=== PATIENT | female | born 1960 | race African-American/Black ===

== ENCOUNTER 2019-07-08 17:25 | Emergency (ER) | payer OTHER ==
--- NOTE | 2019-07-08 17:29 | PDOC ---
History of Present Illness - General Chief Complaint: Pain, Acute Stated Complaint: right ankle pain Time Seen by Provider: 07/08/19 17:28 History Source: Patient Exam Limitations: No Limitations - History of Present Illness Initial Comments: 07/08/19 17:28 Brisa Langford is an otherwise healthy 58F presenting with ankle injury. 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 Denies any other injuries, LOC, head/neck trauma, prodromal WATKINS, chest pain, dizziness, vision changes. Has had pain with movement at the ankle, has taken Motrin for pain and has relieved somewhat. Able to ambulate on the ankle for a few days with a cane, but pain has increased ad presents to ED for evaluation. Works at [employer], unable to walk. Denies numbness/tingling in her leg or lower back. Past History - Past Medical History Allergies/Adverse Reactions: Allergies Allergy/AdvReac Type Severity Reaction Status Date / Time codeine [Codeine] Allergy Verified 06/06/15 10:07 erythromycin base Allergy Verified 06/06/15 10:07 [Erythromycin Base] Home Medications: Ambulatory Orders NK [No Known Home Medication] 06/06/15 Anemia: Yes Asthma: No Cancer: No Cardiac Disorders: No CVA: No COPD: No CHF: No DVT: No Dementia: No Diabetes: No Dialysis: No GI Disorders: Yes (GERD,REFLUX,REDUNDANT COLON) Disorders: No HTN: No Hypercholesterolemia: No Kidney Stones: No Liver Disease: No Psychiatric Problems: No Seizures: No Thyroid Disease: No Lung CA: No - Surgical History Abdominal Surgery: Yes (GASTRIC BYPASS) Appendectomy: No Cardiac Surgery: No Cholecystectomy: No Gastric Stapling: No GI Surgery: No Lung Surgery: No Neurologic Surgery: No Orthopedic Surgery: No - Psycho Social/Smoking Cessation Hx Smoking Status: No Smoking History: Never smoked Have you smoked in the past 12 months: No Number of Cigarettes Smoked Daily: 0 Hx Alcohol Use: No Drug/Substance Use Hx: No Substance Use Type: None Hx Substance Use Treatment: No Review of Systems - Review of Systems Able to Perform ROS?: Yes Constitutional: No: Symptoms Reported HEENTM: No: Symptoms Reported Respiratory: No: Symptoms reported Cardiac (ROS): No: Symptoms Reported ABD/GI: No: Symptoms Reported : No: Symptoms Reported Musculoskeletal: Yes: Joint Pain, Joint Swelling Integumentary: No: Symptoms Reported Neurological: No: Symptoms reported Endocrine: No: Symptoms Reported Hematologic/Lymphatic: No: Symptoms Reported All Other Systems: Reviewed and Negative *Physical Exam - Physical Exam General Appearance: Yes: Nourished, Appropriately Dressed, Obese. No: Apparent Distress HEENT: positive: EOMI, MERE, Normal ENT Inspection, Normal Voice, Symmetrical. negative: Pharynx Normal, Scleral Icterus (R), Scleral Icterus (L), Muffled/Hoarse voice, Pharyngeal Erythema, Tonsillar Exudate, Hearing Grossly Normal Neck: positive: Trachea midline, Supple. negative: Tender, Decreased range of motion, Lymphadenopathy (R), Lymphadenopathy (L), Tender lateral, Tender midline Respiratory/Chest: positive: Lungs Clear, Normal Breath Sounds. negative: Chest Tender, Respiratory Distress, Accessory Muscle Use, Crackles, Rales, Rhonchi, Stridor, Wheezing Cardiovascular: positive: Regular Rhythm, Regular Rate. negative: Murmur Gastrointestinal/Abdominal: positive: Normal Bowel Sounds, Soft, Protuberent. negative: Tender, Organomegaly, Guarding, Rebound, Hernia Musculoskeletal: positive: Normal Inspection. negative: CVA Tenderness, Decreased Range of Motion Extremity: positive: Normal Capillary Refill, Normal Range of Motion (RLE has full ROM to all joints), Tender (swelling at the ankle joint), Swelling. negative: Normal Inspection (bruising to medial malleolus), Coldness, Cyanosis, Calf Tenderness, Inflammation Integumentary: positive: Normal Color, Dry, Warm Neurologic: positive: Fully Oriented, Alert, Normal Mood/Affect, Normal Response, Motor Strength 5/5 (no weakness to flexion or extension at ankle). negative: Numbness, Sensory Deficit (same sensation to both feet/ankle/legs bilaterally) Procedures - Splinting Splint Location: Right: Ankle Pre-Proc Neuro Vasc Exam: normal Hand-Made Type: orthoglass Splint Type: Yes: Meek Alcantar Post-Proc Neuro Vasc Exam: normal, unchanged from pre-exam Terry Bandage: yes Complications: No Good repositioning: Yes Medical Decision Making - Medical Decision Making 07/08/19 19:26 Presents with mechanical fall and injured ankle with pain and swelling, tender to medial malleolus, needs X-ray to r/o fracture. Found to have medial malleolar fracture with mortise disruption and medial shift, consulted Dr. Ackerman and recommends splinting with crutches, non-weight bearing RLE, f/u in office tomorrow AM. Splinted without issue, stable for discharge home. Refusing crutches, discussed importance of non-weight bearing, agrees to follow-up in office tomorrow. Discharge - Discharge Information Problems reviewed: Yes Clinical Impression/Diagnosis: Medial malleolar fracture Qualifiers: Encounter type: initial encounter Fracture type: closed Fracture alignment: nondisplaced Laterality: right Qualified Code(s): S82.54XA - Nondisplaced fracture of medial malleolus of right tibia, initial encounter for closed fracture Condition: Stable Disposition: HOME - Admission No - Follow up/Referral Referrals: Richard Ackerman MD [Staff Physician] - Kleber Zuleta DO [Staff Physician] - - Patient Discharge Instructions Patient Printed Discharge Instructions: DI for Ankle Fracture Additional Instructions: Today you were evaluated for an twisted ankle. You have a right ankle fracture. We have splinted your leg, but this is an injury that is at high risk for causing severe arthritis if it is not fixed. Please see Dr. Ackerman tomorrow in the office for further evaluation. Keep the splint dry and so not get it wet. Use the crutches as instructed and do not put weight on your right foot or else the injury will get worse. If you experience numbness/tingling in the foot, worse pain, or have any other new or concerning symptoms, please return to the emergency room. - Post Discharge Activity Work/Back to School Note: Back to Work
[2019-07-08 17:31] VITALS: BP 131/85; PULSE 81; TEMP 98.3; BMI 40.5
--- NOTE | 2019-07-08 18:45 | PDOC ---
Attending Attestation - Resident Resident Name: Valdemar Elmore - ED Attending Attestation I have performed the following: I have examined & evaluated the patient, The case was reviewed & discussed with the resident, I agree w/resident's findings & plan, Exceptions are as noted - HPI HPI: 07/08/19 18:43 Injury to right ankle. Pain and swelling medially. Difficulty with weightbearing. No distal numbness tingling or pain in the toes or forefoot - Physicial Exam PE: 07/08/19 18:44 PE: Swelling and point tenderness over the medial malleolus. No significant deformity or instability on exam. No fifth metatarsal tenderness. Pulses full. No demonstrable sensory or motor deficits. 07/08/19 19:10 - Medical Decision Making 07/08/19 18:44 Assessment: X-ray reveals isolated fracture of the medial malleolus with minor disruption over the ankle mortise Plan: Orthopedic consultation for further management. 07/08/19 19:[address] Ackerman, orthopedist on-call. The medial malleolar fracture was discussed, along with a disruption of the ankle mortise. He recommended splinting, crutches, nonweightbearing, and follow-up in the morning at his office. These instructions were given to the patient, she seemed to understand and agree, and was discharged, pain controlled, adequately ambulatory and nonweightbearing as instructed, to follow-up tomorrow.
== END 2019-07-08 19:50 | disposition home or self-care (01) ==
LOC: SUPCPDRO 17:25 → FER 17:25
PROC: 2W3QX1Z Immobilization of Right Lower Leg using Splint (ICD-10-PCS; principal; 2019-07-08)
DX: S82.54XA Nondisplaced fracture of medial malleolus of right tibia, initial encounter for closed fracture (principal); W18.39XA Other fall on same level, initial encounter; Y93.89 Activity, other specified; Y92.89 Other specified places as the place of occurrence of the external cause; Z88.6 Allergy status to analgesic agent; Z88.8 Allergy status to other drugs, medicaments and biological substances; K21.9 Gastro-esophageal reflux disease without esophagitis; D64.9 Anemia, unspecified
CPT/HCPCS: 73610-TC-RT-FY; 73630-TC-RT-FY; 99283-25

== ENCOUNTER 2019-10-25 15:55 | Inpatient (IN) | payer OTHER ==
[2019-10-25] MEDS ORDERED: ACETAMINOPHEN 1000 MG/100 ML VIAL (NON FORMULARY) IVPB ONE ×2 (16:10→21:54)
--- NOTE | 2019-10-25 16:10 | PDOC ---
Rapid Medical Evaluation Medical Evaluation: Allergies Allergy/AdvReac Type Severity Reaction Status Date / Time codeine [Codeine] Allergy Verified 09/14/19 17:05 erythromycin base Allergy Verified 09/14/19 17:05 [Erythromycin Base] 10/25/19 16:06 Pt with PMH of PE, presents for R leg pain since . Pt is on Eliquis and states she is compliant with the medication. She notes that her leg is swollen. She initially went to urgent care, and was told to come to the ER for evaluation/US. COVID Positive in August. Denies fevers, chills, SOB Exam: Calf edema with TTP of the R calf. Orders: labs, US Pt to proceed to the ER for further evaluation Discharge Disposition - Diagnosis Leg pain, right - Referrals - Patient Instructions - Post Discharge Activity
[2019-10-25 16:15] VITALS: BMI 38.6
--- NOTE | 2019-10-25 16:50 | PDOC ---
Attending Attestation - Resident Resident Name: Nathaniel Tamez - HPI HPI: 10/25/19 18:18 Pt presents to the ED complaining of RLE swelling. History of COVID with submassive PE, treated with embolectomy. Has been taking Eliquis. Denies chest pain or shortness of breath. - Physicial Exam PE: 10/25/19 18:24 Agree with resident exam. Patient is alert and oriented and in no acute distress. RLE:+ RLE swelling and non pitting edema. + mild tenderness. - Medical Decision Making 10/25/19 18:42 Pt presents to the Ed complaining of RLE swelling. + DVT on US. Patient currently taking eliquis, which she is compliant with. Will anticoagulate with lovenox and admit for anticoagulation and monitoring. Discharge - Discharge Information Problems reviewed: Yes Clinical Impression/Diagnosis: Leg pain, right, Right leg DVT - Follow up/Referral - Patient Discharge Instructions - Post Discharge Activity
[2019-10-25] MEDS ORDERED: ENOXAPARIN NA (PORCINE) 120 MG/0.8 ML DISP.SYRIN SQ SCH ×2 (17:15→20:45)
--- NOTE | 2019-10-25 17:52 | PDOC ---
History of Present Illness - General Chief Complaint: Pain, Acute Stated Complaint: RT LEG PAIN Time Seen by Provider: 10/25/19 16:10 History Source: Patient Exam Limitations: No Limitations - History of Present Illness Initial Comments: 10/25/19 17:52 59 yo F with a hx of COVID (diagnosed in July) and PE (diagnosed with Submassive in July) presents to the emergency department with right lower leg pain and swelling. Per the patient, she states she was discharged 1 month ago for rehabilitation at her home. Since then, she had been taking eliquis 5 mg BID for 1 month without compliance issues. The patient endorses sitting around more than usual. The leg pain has been ongoing for 3 days with swelling that started occurring this morning. The pain is sharp, constant, and worsens with ambulation. She noticed leg swelling today throughout the right LE. Denies the following: fevers, chills, SOB, chest pain, nausea, vomiting, dysuria, hematuria, diarrhea, hematochezia. Allergies: codeine, erythromycin Past History - Medical History Allergies/Adverse Reactions: Allergies Allergy/AdvReac Type Severity Reaction Status Date / Time codeine [Codeine] Allergy Verified 10/25/19 16:09 erythromycin base Allergy Verified 10/25/19 16:09 [Erythromycin Base] Home Medications: Ambulatory Orders Apixaban [Eliquis] 5 mg PO BID #60 tablet 09/22/19 Anemia: Yes Asthma: No Cancer: No Cardiac Disorders: No CVA: No COPD: No CHF: No DVT: No Dementia: No Diabetes: No Dialysis: No GI Disorders: Yes (GERD,REFLUX,REDUNDANT COLON) Disorders: No HTN: No Hypercholesterolemia: No Kidney Stones: No Liver Disease: No Psychiatric Problems: No Seizures: No Thyroid Disease: No Lung CA: No Other medical history: pulmonary embolism 09/14/2019 - Surgical History Abdominal Surgery: Yes (GASTRIC BYPASS) Appendectomy: No Cardiac Surgery: No Cholecystectomy: No Gastric Stapling: No GI Surgery: No Lung Surgery: No Neurologic Surgery: No Orthopedic Surgery: No - Immunization History Immunization Up to Date: Yes - Psycho-Social/Smoking History Smoking Status: No Smoking History: Never smoked Have you smoked in the past 12 months: No Number of Cigarettes Smoked Daily: 0 - Substance Abuse Hx (Audit-C & DAST Scrn) How often the patient has a drink containing alcohol: Never Score: In Men: 4 or > Positive; In Women: 3 or > Positive: 0 Screen Result (Pos requires Nsg. Audit-10AR): Negative In the last yr the pt used illegal drug/Rx for NonMed reason: No Score: Yes response is considered Positive: 0 Screen Result (Positive result requires Nsg. DAST-10): Negative Review of Systems - Review of Systems Able to Perform ROS?: Yes Is the patient limited Ugandan proficient: No Constitutional: No: Chills, Diaphoresis, Fever, Weakness HEENTM: No: Eye Pain, Ear Pain, Nose Pain, Throat Pain Respiratory: No: Cough, Shortness of Breath Cardiac (ROS): Yes: Edema (right lower leg). No: Chest Pain, Lightheadedness, Palpitations ABD/GI: No: Constipated, Diarrhea, Nausea, Rectal Bleeding, Vomiting, Tarry Stools : No: Dysuria, Hematuria Musculoskeletal: Yes: Muscle Pain (right leg pain). No: Back Pain, Joint Pain, Neck Pain Integumentary: No: Bruising, Rash Neurological: No: Headache, Ataxia Psychiatric: No: Change in Appetite Endocrine: No: Unexplained Weight Loss Hematologic/Lymphatic: No: Anemia *Physical Exam - Vital Signs Last Vital Signs Temp Pulse Resp BP Pulse Ox 135/78 99 10/25/19 16:12 10/25/19 16:12 - Physical Exam General Appearance: Yes: Nourished, Appropriately Dressed. No: Apparent Distress, Intoxicated HEENT: positive: EOMI, MERE, Normal Voice, Symmetrical, Pharynx Normal. negative: Pale Conjunctivae, Scleral Icterus (R), Scleral Icterus (L), Muffled/Hoarse voice, Pharyngeal Erythema, Tonsillar Exudate, Tonsillar Erythema Neck: positive: Trachea midline, Supple. negative: Tender, Lymphadenopathy (R), Lymphadenopathy (L), Tender lateral, Tender midline Respiratory/Chest: positive: Lungs Clear, Normal Breath Sounds. negative: Chest Tender, Respiratory Distress, Accessory Muscle Use Cardiovascular: positive: Regular Rhythm, Regular Rate, S1, S2. negative: Systolic Murmur Gastrointestinal/Abdominal: positive: Normal Bowel Sounds, Flat, Soft. negative: Tender, Distended, Guarding, Rebound, Spleenomegaly Lymphatic: negative: Adenopathy Musculoskeletal: positive: Normal Inspection. negative: CVA Tenderness, Vertebral Tenderness Extremity: positive: Normal Capillary Refill, Normal Range of Motion, Tender (posterior calf right side), Swelling (right), Calf Tenderness (right side) Integumentary: positive: Normal Color, Dry, Warm Neurologic: positive: maid cleaning cooking II-XII NML intact, Fully Oriented, Alert, Normal Mood/Affect, Normal Response, Motor Strength 5/5. negative: EOM Palsy, Facial Droop, Numbness, Sensory Deficit, Finger to Nose ED Treatment Course - LABORATORY CBC & Chemistry Diagram: 10/26/19 07:13 10/26/19 07:13 - RADIOLOGY Radiology Studies Ordered: Category Date Time Status CHEST X-RAY PORTABLE* [RAD] Stat Radiology 10/25/19 17:01 Taken Medical Decision Making - Medical Decision Making 59 yo F with a hx of COVID (diagnosed in July) and PE (diagnosed with Submassive in July) presents to the emergency department with right lower leg pain and swelling. Initial vitals: Initial Vital Signs BP Pulse Ox 135/78 99 10/25/19 16:12 10/25/19 16:12 Work up: patient presents to the emergency department with right lower leg extremity swelling and pain. patient had duplex US done by [facility]. Shown to have a clot located in the right lower extremity. patient is currently on eliquis and compliant with her medication. She endorses having more sitting and lying down that usual over the past 1 month Will obtain labs and begin the patient on lovenox. 120 mg to be ordered. Patient was signed out to night team with pending lab work. Discharge - Discharge Information Problems reviewed: Yes Clinical Impression/Diagnosis: Leg pain, right, Right leg DVT - Follow up/Referral - Patient Discharge Instructions - Post Discharge Activity
[2019-10-25] MEDS ORDERED: ENOXAPARIN NA (PORCINE) 100 MG/1 ML DISP.SYRIN SQ ONE (17:55)
[2019-10-25] MEDS ORDERED: ENOXAPARIN NA (PORCINE) 40 MG/0.4 ML DISP.SYRIN SQ ONE (17:55)
[2019-10-25 18:44] LABS: EOS % 0.7 % (0-4.5); HEMATOCRIT 34.6 % (32.4-45.2); HEMOGLOBIN 11.2 GM/dL (10.7-15.3); MCH 29.4 pg (25.7-33.7); MCHC 32.4 g/dl (32.0-36.0); MEAN PLT VOLUME 8.9 fl (7.5-11.1); MONO % 8.8 % (3.8-10.2); NEUT % 61.5 % (42.8-82.8); PLATELET COUNT 297 K/MM3 (134-434); RBC 3.81 M/mm3 (3.60-5.2); RDW 14.8 % (11.6-15.6); WHITE BLOOD COUNT 5.2 K/mm3 (4.0-10.0)
[2019-10-25 18:51] LABS: INR 1.36 (0.83-1.09); PROTHROMBIN TIME (PATIENT) 16.1 SEC (9.7-13.0)
[2019-10-25 19:07] LABS: BILIRUBIN,TOTAL 0.5 mg/dL (0.2-1); BLOOD UREA NITROGEN 8.1 mg/dL (7-18); CREATININE 0.9 mg/dL (0.55-1.3); POTASSIUM 4.1 mmol/L (3.5-5.1); TOT PROT 7.3 g/dl (6.4-8.2)
--- NOTE | 2019-10-25 20:35 | HP ---
Admitting History and Physical - Admission Chief Complaint: Acute pain and edema of the right lower leg History of Present Illness: This 59 yr old female with PMH of pulmonary embolism, obesity, and s/p gastric bypass, anemia, GERD, admitted via ER with an acute pain and edema of the right lower leg since last . Positive for Covid in August 2019. Patient was on Eliquis 5mg po bid. Ultrasound reveals DVT in right femoral vein and right popliteal vein. History Source: Patient, Medical Record Limitations to Obtaining History: No Limitations - Past Medical History [employer]GE [employer]AT: No: Alzheimer's, CVA, Dementia, Migraine, Multiple Sclerosis, Peripheral Neuropathy, Parkinson's, Seizure, Syncope, TIA, Vertigo, Other Cardiovascular: No: AFIB, Aneurysm, Aortic Insufficiency, Aortic Stenosis, CAD, CHF, Deep Vein Thrombosis, HTN, Hyperlipdemia, SD, Mitral Insufficiency, Mitral Stenosis, Murmur, Pulmonary Hypertension, Other Pulmonary: Yes: Pulmonary Embolus Gastrointestinal: Yes: GERD Hepatobiliary: No: Cirrhosis, Cholelithiasis, Cholecystitis, Choledocholithiasis, Hepatitis A, Hepatitis B, Hepatitis C, Other Renal/: No: Renal Failure, Renal Inusuff, BPH, Cancer, Hematuria, Hemodialysis, Neurogenic Bladder, Renal Calculi, UTI, Other Reproductive: No: Ectopic , Endometriosis, Fibroids, PID, Polycystic Ovary Syndrome, Postmenopausal, Other Heme/Onc: Yes: Anemia Infectious Disease: No: AIDS, C-Diff, Herpes Zoster, HIV, MRSA, STD's, Tuberculosis, VREF, Other Psych: No: Addictions, Anxiety, Bipolar, Depression, Panic, Psychosis, Schizophrenia, Other Musculoskeletal: No: Bursitis, Chronic low back pain, Hemiparesis, Hemiplegia, Osteoarthritis, Paraplegia, Other Rheumatology: No: Fibromyalgia, Gout, Lupus, Rheumatoid Arthritis, Sarcoidosis, Vasculitis, Other ENT: No: Allergic Rhinitis, Sinusitis, Other Endocrine: No: Rose's Disease, Armour's Disease, Diabetes Insipidus, Diabetes Mellitus, Hyperparathyroidism, Hyperthyroidism, Hypothyroidism, Osteopenia, SIADH, Other Dermatology: No: Basal Cell, Cellulitis, Eczema, Melanoma, Psoriasis, Squamous Cell, Other - Past Surgical History Past Surgical History: Yes: Bariatric Surgery - Smoking History Smoking history: Never smoked Have you smoked in the past 12 months: No Aproximately how many cigarettes per day: 0 - Alcohol/Substance Use Hx Alcohol Use: No - Social History Usual Living Arrangement: Yes: With Child Home Medications - Allergies Allergies/Adverse Reactions: Allergies Allergy/AdvReac Type Severity Reaction Status Date / Time codeine [Codeine] Allergy Verified 10/25/19 16:09 erythromycin base Allergy Verified 10/25/19 16:09 [Erythromycin Base] - Home Medications Home Medications: Ambulatory Orders Apixaban [Eliquis] 5 mg PO BID #60 tablet 09/22/19 Review of Systems - Review of Systems Constitutional: reports: Other (Pain and swelling in right lower leg) Eyes: reports: No Symptoms HENT: reports: No Symptoms Neck: reports: No Symptoms Cardiovascular: reports: No Symptoms Respiratory: reports: No Symptoms Gastrointestinal: reports: Indigestion Genitourinary: reports: No Symptoms Breasts: reports: No Symptoms Reported Musculoskeletal: reports: Extremity Pain (right lower leg) Integumentary: reports: Erythema (right lower leg) Neurological: reports: No Symptoms Endocrine: reports: No Symptoms Hematology/Lymphatic: reports: No Symptoms Psychiatric: reports: No Symptoms Physical Examination Vital Signs: Vital Signs Temperature 98.2 F 10/25/19 19:24 Pulse Rate 80 10/25/19 19:24 Respiratory Rate Blood Pressure 121/76 10/25/19 19:24 O2 Sat by Pulse Oximetry (%) 100 10/25/19 19:24 Constitutional: Yes: Well Nourished, Calm, Mild Distress Eyes: Yes: Conjunctiva Clear, EOM Intact HENT: Yes: Atraumatic, Normocephalic Neck: Yes: Supple, Trachea Midline Cardiovascular: Yes: Regular Rate and Rhythm Respiratory: Yes: Regular, CTA Bilaterally Gastrointestinal: Yes: Normal Bowel Sounds, Soft, Abdomen, Obese ...Rectal Exam: Yes: Deferred Renal/: Yes: WNL Breast(s): Yes: WNL Musculoskeletal: Yes: WNL Extremities: Yes: Calf Tenderness (right) Edema: Yes Edema: RLE: 2+ Peripheral Pulses WNL: Yes Integumentary: Yes: WNL Neurological: Yes: Alert, Oriented ...Motor Strength: WNL Psychiatric: Yes: Alert, Oriented Labs: CBC, BMP 10/25/19 17:30 10/25/19 17:30 Imaging - Results Chest X-ray: Report Reviewed Ultrasound: Report Reviewed (DVT of right femoral and popliteal veins) Other: Report Reviewed (lab data reviewed) Problem List - Problems (1) Obesity Code(s): E66.9 - OBESITY, UNSPECIFIED (2) Leg pain, right Code(s): M79.604 - PAIN IN RIGHT LEG (3) COVID-19 Code(s): U07.1 - COVID POSITIVE (4) Influenza-like illness Code(s): J11.1 - FLU DUE TO UNIDENTIFIED INFLUENZA VIRUS W OTH RESP MANIFEST (5) Pulmonary embolism Code(s): I26.99 - OTHER PULMONARY EMBOLISM WITHOUT ACUTE COR PULMONALE (6) Shortness of breath Code(s): R06.02 - SHORTNESS OF BREATH (7) Deep vein thrombosis (DVT) of popliteal vein of right lower extremity Code(s): I82.431 - ACUTE EMBOLISM AND THROMBOSIS OF RIGHT POPLITEAL VEIN (8) Deep vein thrombosis (DVT) of femoral vein of right lower extremity Code(s): I82.411 - ACUTE EMBOLISM AND THROMBOSIS OF RIGHT FEMORAL VEIN (9) GERD (gastroesophageal reflux disease) Code(s): K21.9 - GASTRO-ESOPHAGEAL REFLUX DISEASE WITHOUT ESOPHAGITIS (10) H/O gastric bypass Code(s): Z98.84 - BARIATRIC SURGERY STATUS Assessment/Plan Assessment/plan: acute pain in right lower leg, acute edema of right lower leg, acute DVT of right femoral and popliteal veins, pulmonary embolism, obesity, s/p Covid 19 infection, s/p gastric bypass, GERD, anemia; a/c with Lovenox 135mg SQ bid, bed rest with bathroom privileges, cbc, cmp, inr/pt, d-dimer.
--- NOTE | 2019-10-25 20:49 | PDOC ---
*Physical Exam - Vital Signs Last Vital Signs Temp Pulse Resp BP Pulse Ox 98.2 F 80 121/76 100 10/25/19 19:24 10/25/19 19:24 10/25/19 19:24 10/25/19 19:24 ED Treatment Course - LABORATORY CBC & Chemistry Diagram: 10/25/19 17:30 10/25/19 17:30 - ADDITIONAL ORDERS Additional order review: Laboratory Results 10/25/19 10/25/19 17:30 17:30 PT with INR 16.10 H INR 1.36 H Sodium 140 Potassium 4.1 Chloride 106 Carbon Dioxide 25 Anion Gap 9 BUN 8.1 Creatinine 0.9 Est GFR (CKD-EPI)AfAm 81.11 Est GFR (CKD-EPI)NonAf 69.99 Random Glucose 125 H Calcium 9.0 Total Bilirubin 0.5 AST 35 ALT 42 Alkaline Phosphatase 119 H Total Protein 7.3 Albumin 3.0 L 10/25/19 17:30 RBC 3.81 MCV 91.0 MCHC 32.4 RDW 14.8 MPV 8.9 Neutrophils % 61.5 Lymphocytes % 28.0 D Monocytes % 8.8 Eosinophils % 0.7 Basophils % 1.0 - Medications Given in the ED: ED Medications Discontinued Medications Generic Name Dose Route Start Last Admin Trade Name Freq PRN Reason Stop Dose Admin Acetaminophen 1,000 mg 10/25/19 16:10 10/25/19 19:04 Ofirmev Injection - IVPB 10/25/19 16:11 Not Given ONCE ONE Enoxaparin Sodium 120 mg 10/25/19 17:15 10/25/19 18:16 Lovenox - SQ 120 mg ONCE ALEX Administration Medical Decision Making - Medical Decision Making 10/25/19 20:[address] Tamez 59 yo F with a hx of COVID (diagnosed in July) and PE (diagnosed with Submassive in July) presents to the emergency department with right lower leg pain and swelling. Concern for LE DVT Duplex US with right common femoral dvt; 120mg lovenox given signed out to followup labs and admit 10/25/19 20:48 labs wnl admitted to Dr Frausto, [place] Discharge - Discharge Information Problems reviewed: Yes Clinical Impression/Diagnosis: Leg pain, right, Right leg DVT Condition: Stable - Follow up/Referral Referrals: Yang Foreman [Primary Care Provider] - - Patient Discharge Instructions - Post Discharge Activity
[2019-10-25] MEDS ORDERED: ACETAMINOPHEN INJECTION 100 ML IVPB ONE (22:05)
[2019-10-25] MEDS ORDERED: ENOXAPARIN NA (PORCINE) 30 MG/0.3 ML DISP.SYRIN SQ ONE (22:21)
[2019-10-25] MEDS: ENOXAPARIN SQ SCH (22:33)
[2019-10-26] MEDS ORDERED: PT OWN MED DRAWER 7, Y5N ONE ×3 (01:04→21:16)
[2019-10-26] MEDS ORDERED: ACETAMINOPHEN 325 MG TABLET (FP) PO PRN (06:14)
[2019-10-26 08:27] LABS: BASO % 0.8 % (0-2.0); EOS % 1.3 % (0-4.5); HEMATOCRIT 32.5 % (32.4-45.2); HEMOGLOBIN 10.5 GM/dL (10.7-15.3); LYMPH % 37.6 % (8-40); MCH 29.3 pg (25.7-33.7); MCHC 32.4 g/dl (32.0-36.0); MEAN CELL VOLUME 90.6 fl (80-96); MEAN PLT VOLUME 8.6 fl (7.5-11.1); MONO % 11.2 % (3.8-10.2); NEUT % 49.1 % (42.8-82.8); PLATELET COUNT 281 K/MM3 (134-434); RBC 3.59 M/mm3 (3.60-5.2); RDW 14.5 % (11.6-15.6); WHITE BLOOD COUNT 4.3 K/mm3 (4.0-10.0)
[2019-10-26 08:35] LABS: INR 1.1 (0.83-1.09)
[2019-10-26 08:48] LABS: ALBUMIN 2.7 g/dl (3.4-5.0); BILIRUBIN,TOTAL 0.5 mg/dL (0.2-1); BLOOD UREA NITROGEN 8.1 mg/dL (7-18); CREATININE 0.7 mg/dL (0.55-1.3); POTASSIUM 4.7 mmol/L (3.5-5.1); TOT PROT 6.6 g/dl (6.4-8.2)
--- NOTE | 2019-10-26 09:04 | PN ---
Progress Note, Physician Chief Complaint: Patient seen and examined at the bedside, no acute events from last night, no labored breathing, no chest pain. History of Present Illness: This 59 yr old female with PMH of pulmonary embolism, obesity, gastric bypass, anemia, GERD admitted via ER with an acute pain and edema of right lower leg. Ultrasound revealed DVT in right femoral and popliteal veins. - Current Medication List Current Medications: Active Medications Enoxaparin Sodium 100 mg/ (Enoxaparin Sodium 35 mg) 135 mg SQ BID [facility] Last Admin: 10/25/19 22:33 Dose: 135 mg Documented by: - Objective Vital Signs: Vital Signs Temperature 99 F 10/26/19 06:39 Pulse Rate 72 10/26/19 06:39 Respiratory Rate 20 10/26/19 06:39 Blood Pressure 133/78 10/26/19 06:39 O2 Sat by Pulse Oximetry (%) 100 10/26/19 03:51 Constitutional: Yes: Well Nourished, No Distress, Calm Eyes: Yes: Conjunctiva Clear, EOM Intact HENT: Yes: Atraumatic, Normocephalic Neck: Yes: Supple, Trachea Midline Cardiovascular: Yes: Regular Rate and Rhythm Respiratory: Yes: Regular, CTA Bilaterally Gastrointestinal: Yes: Normal Bowel Sounds, Soft ...Rectal Exam: Yes: Deferred Genitourinary: Yes: WNL Breast(s): Yes: WNL Musculoskeletal: Yes: WNL Extremities: Yes: Calf Tenderness (right) Edema: Yes Edema: RLE: 2+ Peripheral Pulses WNL: Yes Integumentary: Yes: WNL Neurological: Yes: WNL ...Motor Strength: WNL Psychiatric: Yes: WNL Labs: CBC, BMP 10/26/19 07:13 10/26/19 07:13 INR, PTT INR 1.10 (0.83-1.09) H 10/26/19 07:13 - ....Imaging Other: Report Reviewed (lab data reviewed) Problem List - Problems (1) Obesity Code(s): E66.9 - OBESITY, UNSPECIFIED (2) Leg pain, right Code(s): M79.604 - PAIN IN RIGHT LEG (3) COVID-19 Code(s): U07.1 - COVID POSITIVE (4) Influenza-like illness Code(s): J11.1 - FLU DUE TO UNIDENTIFIED INFLUENZA VIRUS W OTH RESP MANIFEST (5) Pulmonary embolism Code(s): I26.99 - OTHER PULMONARY EMBOLISM WITHOUT ACUTE COR PULMONALE (6) Shortness of breath Code(s): R06.02 - SHORTNESS OF BREATH (7) Deep vein thrombosis (DVT) of popliteal vein of right lower extremity Code(s): I82.431 - ACUTE EMBOLISM AND THROMBOSIS OF RIGHT POPLITEAL VEIN (8) Deep vein thrombosis (DVT) of femoral vein of right lower extremity Code(s): I82.411 - ACUTE EMBOLISM AND THROMBOSIS OF RIGHT FEMORAL VEIN (9) GERD (gastroesophageal reflux disease) Code(s): K21.9 - GASTRO-ESOPHAGEAL REFLUX DISEASE WITHOUT ESOPHAGITIS (10) H/O gastric bypass Code(s): Z98.84 - BARIATRIC SURGERY STATUS Assessment/Plan Assessment/plan: acute pain and edema of the right lower leg, acute DVT of the right femoral and popliteal veins, obesity, anemia, s/p gastric bypass, pulmonary embolism, GERD; a/c with Lovenox 135mg SQ bid, acetaminophen prn.
[2019-10-26] MEDS: ENOXAPARIN SQ SCH ×2 (09:10→22:43)
--- NOTE | 2019-10-26 09:19 | EKG ---
Test Reason : Blood Pressure : / mmHG Vent. Rate : 087 BPM Atrial Rate : 087 BPM P-R Int : 152 ms QRS Dur : 092 ms QT Int : 372 ms P-R-T Axes : 046 -12 032 degrees QTc Int : 447 ms SINUS RHYTHM WITH PREMATURE ATRIAL COMPLEXES MINIMAL VOLTAGE CRITERIA FOR LVH, MAY BE NORMAL VARIANT BORDERLINE ECG WHEN COMPARED WITH ECG OF 14-SEP-2019 17:23, PREMATURE ATRIAL COMPLEXES ARE NOW PRESENT ST NO LONGER DEPRESSED IN LATERAL LEADS Confirmed by JOHNNA VANN MD ([id number]) on 10/26/2019 9:19:09 AM Referred By: Confirmed By:JOHNNA VANN MD
[2019-10-26] MEDS: ACETAMINOPHEN 325 MG TABLET (FP) PO PRN ×2 (16:52→22:43)
[2019-10-26] MEDS ORDERED: WARFARIN NA 5 MG TABLET PO ONE (18:00)
[2019-10-27 08:00] LABS: BASO % 0.8 % (0-2.0); EOS % 0.7 % (0-4.5); HEMATOCRIT 34.2 % (32.4-45.2); HEMOGLOBIN 11.3 GM/dL (10.7-15.3); LYMPH % 44.5 % (8-40); MCH 29.9 pg (25.7-33.7); MEAN CELL VOLUME 90.6 fl (80-96); MEAN PLT VOLUME 8.6 fl (7.5-11.1); MONO % 8.1 % (3.8-10.2); NEUT % 45.9 % (42.8-82.8); PLATELET COUNT 324 K/MM3 (134-434); RBC 3.77 M/mm3 (3.60-5.2); RDW 14.7 % (11.6-15.6); WHITE BLOOD COUNT 4.3 K/mm3 (4.0-10.0)
[2019-10-27 08:08] LABS: INR 1.03 (0.83-1.09); PROTHROMBIN TIME (PATIENT) 12.1 SEC (9.7-13.0)
--- NOTE | 2019-10-27 09:35 | PN ---
Progress Note, Physician Chief Complaint: Patient seen and examined at the bedside, no acute events from last night, c/o constipation, no chest tightness, no labored breathing. History of Present Illness: This 59 yr old female with PMH of pulmonary embolism, obesity, gastric bypass, anemia, GERD admitted via ER with an acute pain and edema of RLE. - Current Medication List Current Medications: Active Medications Acetaminophen (Tylenol -) 650 mg PO Q4H PRN PRN Reason: MODERATE PAIN Last Admin: 10/26/19 22:43 Dose: 650 mg Documented by: Enoxaparin Sodium 100 mg/ (Enoxaparin Sodium 35 mg) 135 mg SQ BID [facility] Last Admin: 10/26/19 22:43 Dose: 135 mg Documented by: - Objective Vital Signs: Vital Signs Temperature 98.7 F 10/27/19 06:42 Pulse Rate 74 10/27/19 06:42 Respiratory Rate 10/27/19 06:42 Blood Pressure 128/92 10/27/19 06:42 O2 Sat by Pulse Oximetry (%) 100 10/26/19 21:00 Constitutional: Yes: Well Nourished, No Distress, Calm Eyes: Yes: Conjunctiva Clear, EOM Intact HENT: Yes: Atraumatic, Normocephalic Neck: Yes: Supple, Trachea Midline Cardiovascular: Yes: Regular Rate and Rhythm Respiratory: Yes: Regular, CTA Bilaterally Gastrointestinal: Yes: Normal Bowel Sounds, Soft, Other (constipation) ...Rectal Exam: Yes: Deferred Genitourinary: Yes: WNL Musculoskeletal: Yes: WNL Extremities: Yes: Other (DVT of RLE) Edema: Yes Edema: RLE: 1+ Peripheral Pulses WNL: Yes Integumentary: Yes: WNL Neurological: Yes: WNL ...Motor Strength: WNL Psychiatric: Yes: WNL Labs: CBC, BMP 10/27/19 06:26 10/26/19 07:13 INR, PTT INR 1.03 (0.83-1.09) 10/27/19 06:26 - ....Imaging Other: Report Reviewed (lab data reviewed) Problem List - Problems (1) Obesity Code(s): E66.9 - OBESITY, UNSPECIFIED (2) Leg pain, right Code(s): M79.604 - PAIN IN RIGHT LEG (3) COVID-19 Code(s): U07.1 - COVID POSITIVE (4) Influenza-like illness Code(s): J11.1 - FLU DUE TO UNIDENTIFIED INFLUENZA VIRUS W OTH RESP MANIFEST (5) Pulmonary embolism Code(s): I26.99 - OTHER PULMONARY EMBOLISM WITHOUT ACUTE COR PULMONALE (6) Shortness of breath Code(s): R06.02 - SHORTNESS OF BREATH (7) Deep vein thrombosis (DVT) of popliteal vein of right lower extremity Code(s): I82.431 - ACUTE EMBOLISM AND THROMBOSIS OF RIGHT POPLITEAL VEIN (8) Deep vein thrombosis (DVT) of femoral vein of right lower extremity Code(s): I82.411 - ACUTE EMBOLISM AND THROMBOSIS OF RIGHT FEMORAL VEIN (9) GERD (gastroesophageal reflux disease) Code(s): K21.9 - GASTRO-ESOPHAGEAL REFLUX DISEASE WITHOUT ESOPHAGITIS (10) H/O gastric bypass Code(s): Z98.84 - BARIATRIC SURGERY STATUS Assessment/Plan Assessment/plan: acute pain and edema of the right lower leg, acute DVT of right femoral and popliteal veins, pulmonary embolism, obesity, s/p gastric bypass, GERD, anemia; a/c with Lovenox and Warfarin, Acetaminophen prn for pain of the right lower leg.
[2019-10-27] MEDS: ENOXAPARIN SQ SCH ×2 (09:38→22:24)
[2019-10-27] MEDS ORDERED: PT OWN MED DRAWER 7, Y5N ONE ×3 (09:47→22:24)
[2019-10-27] MEDS: ACETAMINOPHEN 325 MG TABLET (FP) PO PRN ×3 (09:51→22:20)
[2019-10-27] MEDS ORDERED: POLYETHYLENE GLYCOL 3350 119 GM BTL PO SCH (11:15)
[2019-10-27] MEDS ORDERED: WARFARIN NA 5 MG TABLET PO SCH (18:00)
[2019-10-28 08:02] LABS: INR 0.99 (0.83-1.09); PROTHROMBIN TIME (PATIENT) 11.7 SEC (9.7-13.0)
[2019-10-28 08:26] LABS: EOS % 0.6 % (0-4.5); HEMATOCRIT 33.6 % (32.4-45.2); HEMOGLOBIN 11.1 GM/dL (10.7-15.3); LYMPH % 41.6 % (8-40); MCH 29.6 pg (25.7-33.7); MCHC 33.1 g/dl (32.0-36.0); MEAN CELL VOLUME 89.3 fl (80-96); MEAN PLT VOLUME 8.9 fl (7.5-11.1); MONO % 12.4 % (3.8-10.2); NEUT % 44.4 % (42.8-82.8); PLATELET COUNT 322 K/MM3 (134-434); RBC 3.76 M/mm3 (3.60-5.2); RDW 14.5 % (11.6-15.6); WHITE BLOOD COUNT 3.9 K/mm3 (4.0-10.0)
--- NOTE | 2019-10-28 09:30 | PN ---
Progress Note, Physician Chief Complaint: Patient seen and examined at the bedside, no acute events from last night, intermittent pain in the right lower leg, no constipation. History of Present Illness: This 59 yr old female with PMH of obesity, pulmonary embolism, s/p gastric bypass, anemia, GERD admitted via ER with an acute DVT of right femoral and popliteal veins. - Current Medication List Current Medications: Active Medications Acetaminophen (Tylenol -) 650 mg PO Q4H PRN PRN Reason: MODERATE PAIN Last Admin: 10/27/19 22:20 Dose: 650 mg Documented by: Enoxaparin Sodium 100 mg/ (Enoxaparin Sodium 35 mg) 135 mg SQ BID [facility] Last Admin: 10/27/19 22:24 Dose: 135 mg Documented by: Polyethylene Glycol (Miralax (For Daily Use) -) 17 gm PO DAILY [facility] Last Admin: 10/27/19 11:35 Dose: 17 gm Documented by: Warfarin Sodium (Coumadin -) 5 mg PO DAILY@1800 [facility] Last Admin: 10/27/19 17:36 Dose: 5 mg Documented by: - Objective Vital Signs: Vital Signs Temperature 98.7 F 10/28/19 04:00 Pulse Rate 68 10/28/19 04:00 Respiratory Rate 20 10/28/19 04:00 Blood Pressure 117/55 L 10/28/19 04:00 O2 Sat by Pulse Oximetry (%) 99 10/27/19 20:30 Constitutional: Yes: Well Nourished, No Distress, Calm Eyes: Yes: Conjunctiva Clear, EOM Intact HENT: Yes: Atraumatic, Normocephalic Neck: Yes: Supple, Trachea Midline Cardiovascular: Yes: Regular Rate and Rhythm Respiratory: Yes: Regular, CTA Bilaterally Gastrointestinal: Yes: Normal Bowel Sounds, Soft ...Rectal Exam: Yes: Deferred Genitourinary: Yes: WNL Breast(s): Yes: WNL Musculoskeletal: Yes: WNL Extremities: Yes: Other (no calf tenderness of the right lower leg) Edema: Yes Edema: RLE: 1+ Peripheral Pulses WNL: Yes Integumentary: Yes: WNL Neurological: Yes: WNL ...Motor Strength: WNL Labs: CBC, BMP 10/28/19 06:35 10/26/19 07:13 INR, PTT INR 0.99 (0.83-1.09) 10/28/19 06:35 - ....Imaging Other: Report Reviewed (lab data reviewed) Problem List - Problems (1) Obesity Code(s): E66.9 - OBESITY, UNSPECIFIED (2) Leg pain, right Code(s): M79.604 - PAIN IN RIGHT LEG (3) COVID-19 Code(s): U07.1 - COVID POSITIVE (4) Influenza-like illness Code(s): J11.1 - FLU DUE TO UNIDENTIFIED INFLUENZA VIRUS W OTH RESP MANIFEST (5) Pulmonary embolism Code(s): I26.99 - OTHER PULMONARY EMBOLISM WITHOUT ACUTE COR PULMONALE (6) Shortness of breath Code(s): R06.02 - SHORTNESS OF BREATH (7) Deep vein thrombosis (DVT) of popliteal vein of right lower extremity Code(s): I82.431 - ACUTE EMBOLISM AND THROMBOSIS OF RIGHT POPLITEAL VEIN (8) Deep vein thrombosis (DVT) of femoral vein of right lower extremity Code(s): I82.411 - ACUTE EMBOLISM AND THROMBOSIS OF RIGHT FEMORAL VEIN (9) GERD (gastroesophageal reflux disease) Code(s): K21.9 - GASTRO-ESOPHAGEAL REFLUX DISEASE WITHOUT ESOPHAGITIS (10) H/O gastric bypass Code(s): Z98.84 - BARIATRIC SURGERY STATUS Assessment/Plan Assessment/plan: acute DVT of the right popliteal and femoral veins, acute pain and edema of the right lower leg, obesity, pulmonary embolism, gastric bypass, anemia, GERD; Warfarin 7.5mg po daily, monitor INR daily, adjusting dose of Warfarin, Tylenol prn for pain of the right lower leg, may ambulate outside of room.
[2019-10-28] MEDS: ENOXAPARIN SQ SCH ×2 (09:47→22:02)
[2019-10-28] MEDS: ACETAMINOPHEN 325 MG TABLET (FP) PO PRN ×3 (09:52→22:02)
[2019-10-28] MEDS ORDERED: WARFARIN NA 7.5 MG TABLET (FP) PO SCH (18:00)
[2019-10-29 07:36] LABS: INR 0.98 (0.83-1.09); PROTHROMBIN TIME (PATIENT) 11.6 SEC (9.7-13.0)
[2019-10-29 07:50] LABS: BASO % 0.8 % (0-2.0); HEMATOCRIT 33.3 % (32.4-45.2); LYMPH % 49.4 % (8-40); MCH 29.7 pg (25.7-33.7); MCHC 32.9 g/dl (32.0-36.0); MEAN CELL VOLUME 90.3 fl (80-96); MEAN PLT VOLUME 8.6 fl (7.5-11.1); MONO % 11.1 % (3.8-10.2); NEUT % 37.7 % (42.8-82.8); PLATELET COUNT 329 K/MM3 (134-434); RBC 3.69 M/mm3 (3.60-5.2); RDW 14.6 % (11.6-15.6); WHITE BLOOD COUNT 3.3 K/mm3 (4.0-10.0)
--- NOTE | 2019-10-29 09:10 | PN ---
Progress Note, Physician Chief Complaint: Patient seen and examined at the bedside, no acute events from last night, intermittent pain of the right lower leg less bothersome, oxygen saturation 99% on room air. History of Present Illness: This 59 yr old female with PMH of pulmonary embolism, obesity, gastric bypass, anemia, GERD admitted via ER with an acute pain and edema of the right lower leg, and an acute DVT of the right femoral and popliteal veins. - Current Medication List Current Medications: Active Medications Acetaminophen (Tylenol -) 650 mg PO Q4H PRN PRN Reason: MODERATE PAIN Last Admin: 10/28/19 22:02 Dose: 650 mg Documented by: Enoxaparin Sodium 100 mg/ (Enoxaparin Sodium 35 mg) 135 mg SQ BID [facility] Last Admin: 10/28/19 22:02 Dose: 135 mg Documented by: Polyethylene Glycol (Miralax (For Daily Use) -) 17 gm PO DAILY PRN PRN Reason: CONSTIPATION Warfarin Sodium (Coumadin -) 10 mg PO DAILY@1800 [facility] - Objective Vital Signs: Vital Signs Temperature 98.1 F 10/29/19 06:00 Pulse Rate 72 10/29/19 06:00 Respiratory Rate 20 10/29/19 06:00 Blood Pressure 134/79 10/29/19 06:00 O2 Sat by Pulse Oximetry (%) 99 10/28/19 21:00 Constitutional: Yes: Well Nourished, Calm, Mild Distress Eyes: Yes: Conjunctiva Clear, EOM Intact HENT: Yes: Atraumatic, Normocephalic Neck: Yes: Supple, Trachea Midline Cardiovascular: Yes: Regular Rate and Rhythm Respiratory: Yes: Regular, CTA Bilaterally Gastrointestinal: Yes: Normal Bowel Sounds, Soft ...Rectal Exam: Yes: Deferred Genitourinary: Yes: WNL Breast(s): Yes: WNL Musculoskeletal: Yes: WNL Extremities: Yes: Other (DVT of right lower leg) Edema: Yes Edema: RLE: 2+ Peripheral Pulses WNL: Yes Integumentary: Yes: WNL Neurological: Yes: WNL ...Motor Strength: WNL Psychiatric: Yes: WNL Labs: CBC, BMP 10/29/19 06:18 10/26/19 07:13 INR, PTT INR 0.98 (0.83-1.09) 07/02/20 06:18 - ....Imaging Other: Report Reviewed (lab data reviewed) Problem List - Problems (1) Obesity Code(s): E66.9 - OBESITY, UNSPECIFIED (2) Leg pain, right Code(s): M79.604 - PAIN IN RIGHT LEG (3) COVID-19 Code(s): U07.1 - COVID POSITIVE (4) Influenza-like illness Code(s): J11.1 - FLU DUE TO UNIDENTIFIED INFLUENZA VIRUS W OTH RESP MANIFEST (5) Pulmonary embolism Code(s): I26.99 - OTHER PULMONARY EMBOLISM WITHOUT ACUTE COR PULMONALE (6) Shortness of breath Code(s): R06.02 - SHORTNESS OF BREATH (7) Deep vein thrombosis (DVT) of popliteal vein of right lower extremity Code(s): I82.431 - ACUTE EMBOLISM AND THROMBOSIS OF RIGHT POPLITEAL VEIN (8) Deep vein thrombosis (DVT) of femoral vein of right lower extremity Code(s): I82.411 - ACUTE EMBOLISM AND THROMBOSIS OF RIGHT FEMORAL VEIN (9) GERD (gastroesophageal reflux disease) Code(s): K21.9 - GASTRO-ESOPHAGEAL REFLUX DISEASE WITHOUT ESOPHAGITIS (10) H/O gastric bypass Code(s): Z98.84 - BARIATRIC SURGERY STATUS Assessment/Plan Assessment/plan: acute DVT of right femoral and popliteal veins, acute pain and edema of the right lower leg, acute leukopenia, pulmonary embolism, GERD, anemia, obesity, gastric bypass; a/c with Warfarin 10mg po today, and Lovenox 135mg SQ bid, Acetaminophen prn for pain control, may ambulate outside of room, Covid negative, monitor INR daily, adjusting dose of Warfarin.
[2019-10-29] MEDS ORDERED: PT OWN MED DRAWER 7, Y5N ONE ×2 (09:56→20:53)
[2019-10-29] MEDS: ENOXAPARIN SQ SCH ×2 (09:58→21:17)
[2019-10-29] MEDS: WARFARIN NA 5 MG TABLET PO SCH (17:12)
[2019-10-30 07:49] LABS: INR 1.13 (0.83-1.09); PROTHROMBIN TIME (PATIENT) 13.3 SEC (9.7-13.0)
[2019-10-30 07:59] LABS: BASO % 0.6 % (0-2.0); EOS % 0.7 % (0-4.5); HEMATOCRIT 33.7 % (32.4-45.2); HEMOGLOBIN 10.7 GM/dL (10.7-15.3); LYMPH % 48.1 % (8-40); MCH 28.6 pg (25.7-33.7); MCHC 31.8 g/dl (32.0-36.0); MEAN CELL VOLUME 89.8 fl (80-96); MEAN PLT VOLUME 8.6 fl (7.5-11.1); MONO % 11.6 % (3.8-10.2); PLATELET COUNT 341 K/MM3 (134-434); RBC 3.75 M/mm3 (3.60-5.2); RDW 14.7 % (11.6-15.6); WHITE BLOOD COUNT 3.9 K/mm3 (4.0-10.0)
--- NOTE | 2019-10-30 09:03 | PN ---
Progress Note, Physician Chief Complaint: Patient seen and examined at the bedside, no acute events from last night, oxygen saturation 99% on room air, no pain in right lower leg. History of Present Illness: This 59 yr old female with PMH of obesity, pulmonary embolism, gastric bypass, anemia, and GERD admitted via ER with an acute DVT of the right femoral and popliteal veins. - Current Medication List Current Medications: Active Medications Acetaminophen (Tylenol -) 650 mg PO Q4H PRN PRN Reason: MODERATE PAIN Last Admin: 10/28/19 22:02 Dose: 650 mg Documented by: Enoxaparin Sodium 100 mg/ (Enoxaparin Sodium 35 mg) 135 mg SQ BID [facility] Last Admin: 10/29/19 21:17 Dose: 135 mg Documented by: Polyethylene Glycol (Miralax (For Daily Use) -) 17 gm PO DAILY PRN PRN Reason: CONSTIPATION Warfarin Sodium (Coumadin -) 10 mg PO DAILY@1800 [facility] Last Admin: 10/29/19 17:12 Dose: 10 mg Documented by: - Objective Vital Signs: Vital Signs Temperature 98.5 F 10/30/19 06:00 Pulse Rate 69 10/30/19 06:00 Respiratory Rate 20 10/30/19 06:00 Blood Pressure 136/74 10/30/19 06:00 O2 Sat by Pulse Oximetry (%) 99 10/29/19 09:00 Constitutional: Yes: Well Nourished, No Distress, Calm Eyes: Yes: Conjunctiva Clear, EOM Intact HENT: Yes: Atraumatic, Normocephalic Neck: Yes: Supple, Trachea Midline Cardiovascular: Yes: Regular Rate and Rhythm Respiratory: Yes: Regular, CTA Bilaterally Gastrointestinal: Yes: Normal Bowel Sounds, Soft ...Rectal Exam: Yes: Deferred Genitourinary: Yes: WNL Breast(s): Yes: WNL Musculoskeletal: Yes: WNL Extremities: Yes: WNL Edema: Yes Edema: RLE: 1+ Peripheral Pulses WNL: Yes Integumentary: Yes: WNL Neurological: Yes: WNL ...Motor Strength: WNL Psychiatric: Yes: WNL Labs: CBC, BMP 10/30/19 06:29 10/26/19 07:13 INR, PTT INR 1.13 (0.83-1.09) H 10/30/19 06:29 - ....Imaging Other: Report Reviewed (lab data reviewed) Problem List - Problems (1) Obesity Code(s): E66.9 - OBESITY, UNSPECIFIED (2) Leg pain, right Code(s): M79.604 - PAIN IN RIGHT LEG (3) COVID-19 Code(s): U07.1 - COVID POSITIVE (4) Influenza-like illness Code(s): J11.1 - FLU DUE TO UNIDENTIFIED INFLUENZA VIRUS W OTH RESP MANIFEST (5) Pulmonary embolism Code(s): I26.99 - OTHER PULMONARY EMBOLISM WITHOUT ACUTE COR PULMONALE (6) Shortness of breath Code(s): R06.02 - SHORTNESS OF BREATH (7) Deep vein thrombosis (DVT) of popliteal vein of right lower extremity Code(s): I82.431 - ACUTE EMBOLISM AND THROMBOSIS OF RIGHT POPLITEAL VEIN (8) Deep vein thrombosis (DVT) of femoral vein of right lower extremity Code(s): I82.411 - ACUTE EMBOLISM AND THROMBOSIS OF RIGHT FEMORAL VEIN (9) GERD (gastroesophageal reflux disease) Code(s): K21.9 - GASTRO-ESOPHAGEAL REFLUX DISEASE WITHOUT ESOPHAGITIS (10) H/O gastric bypass Code(s): Z98.84 - BARIATRIC SURGERY STATUS Assessment/Plan Assessment/plan: acute pain and edema of right lower leg, acute DVT of right femoral and popliteal veins, obesity, gastric bypass, pulmonary embolism, GERD, anemia; a/c with Warfarin and Lovenox, adjusting dose of warfarin, acetaminophen prn for pain in right lower leg, physical activity as tolerated.
[2019-10-30] MEDS ORDERED: PT OWN MED DRAWER 7, Y5N ONE ×2 (09:25→21:10)
[2019-10-30] MEDS: ENOXAPARIN SQ SCH ×2 (09:36→21:34)
[2019-10-30] MEDS: WARFARIN NA 5 MG TABLET PO SCH (17:24)
--- NOTE | 2019-10-31 08:22 | PN ---
Progress Note, Physician Chief Complaint: Patient seen and examined at the bedside, no acute events from last night, no signs of bleeding. History of Present Illness: This 59 yr old female with PMH of pulmonary embolism, obesity, gastric bypass, GERD admitted via ER with an acute pain and edema of the right lower leg, and acute DVT of right femoral and popliteal veins. - Current Medication List Current Medications: Active Medications Acetaminophen (Tylenol -) 650 mg PO Q4H PRN PRN Reason: MODERATE PAIN Last Admin: 10/28/19 22:02 Dose: 650 mg Documented by: Enoxaparin Sodium 100 mg/ (Enoxaparin Sodium 35 mg) 135 mg SQ BID [facility] Last Admin: 10/30/19 21:34 Dose: 135 mg Documented by: Polyethylene Glycol (Miralax (For Daily Use) -) 17 gm PO DAILY PRN PRN Reason: CONSTIPATION Warfarin Sodium (Coumadin -) 10 mg PO DAILY@1800 [facility] Last Admin: 10/30/19 17:24 Dose: 10 mg Documented by: - Objective Vital Signs: Vital Signs Temperature 98.5 F 10/31/19 07:43 Pulse Rate 66 10/31/19 07:43 Respiratory Rate 20 10/31/19 07:43 Blood Pressure 117/78 10/31/19 07:43 O2 Sat by Pulse Oximetry (%) 99 10/30/19 20:05 Constitutional: Yes: Well Nourished, No Distress, Calm Eyes: Yes: Conjunctiva Clear, EOM Intact HENT: Yes: Atraumatic, Normocephalic Neck: Yes: Supple, Trachea Midline Cardiovascular: Yes: Regular Rate and Rhythm Respiratory: Yes: Regular, CTA Bilaterally Gastrointestinal: Yes: Normal Bowel Sounds, Soft ...Rectal Exam: Yes: Deferred Genitourinary: Yes: WNL Breast(s): Yes: WNL Musculoskeletal: Yes: WNL Extremities: Yes: WNL Edema: Yes Edema: RLE: 1+ Peripheral Pulses WNL: Yes Integumentary: Yes: WNL Neurological: Yes: WNL ...Motor Strength: WNL Psychiatric: Yes: WNL Labs: CBC, BMP 10/30/19 06:29 10/26/19 07:13 INR, PTT INR 1.13 (0.83-1.09) H 10/30/19 06:29 - ....Imaging Other: Report Reviewed (lab data reviewed) Problem List - Problems (1) Obesity Code(s): E66.9 - OBESITY, UNSPECIFIED (2) Leg pain, right Code(s): M79.604 - PAIN IN RIGHT LEG (3) COVID-19 Code(s): U07.1 - COVID POSITIVE (4) Influenza-like illness Code(s): J11.1 - FLU DUE TO UNIDENTIFIED INFLUENZA VIRUS W OTH RESP MANIFEST (5) Pulmonary embolism Code(s): I26.99 - OTHER PULMONARY EMBOLISM WITHOUT ACUTE COR PULMONALE (6) Shortness of breath Code(s): R06.02 - SHORTNESS OF BREATH (7) Deep vein thrombosis (DVT) of popliteal vein of right lower extremity Code(s): I82.431 - ACUTE EMBOLISM AND THROMBOSIS OF RIGHT POPLITEAL VEIN (8) Deep vein thrombosis (DVT) of femoral vein of right lower extremity Code(s): I82.411 - ACUTE EMBOLISM AND THROMBOSIS OF RIGHT FEMORAL VEIN (9) GERD (gastroesophageal reflux disease) Code(s): K21.9 - GASTRO-ESOPHAGEAL REFLUX DISEASE WITHOUT ESOPHAGITIS (10) H/O gastric bypass Code(s): Z98.84 - BARIATRIC SURGERY STATUS Assessment/Plan Assessment/plan: acute DVT of right femoral and popliteal veins, acute pain and edema of the right lower leg, gastric bypass, GERD, obesity, anemia, pulmonary embolism; Lovenox and warfarin, adjusting warfarin dosage.
[2019-10-31 08:33] LABS: BASO % 1.5 % (0-2.0); EOS % 0.6 % (0-4.5); HEMATOCRIT 34.5 % (32.4-45.2); HEMOGLOBIN 11.2 GM/dL (10.7-15.3); LYMPH % 43.9 % (8-40); MCHC 32.6 g/dl (32.0-36.0); MEAN PLT VOLUME 8.4 fl (7.5-11.1); PLATELET COUNT 348 K/MM3 (134-434); RBC 3.87 M/mm3 (3.60-5.2); RDW 14.5 % (11.6-15.6); WHITE BLOOD COUNT 4.3 K/mm3 (4.0-10.0)
[2019-10-31 08:44] LABS: INR 1.19 (0.83-1.09); PROTHROMBIN TIME (PATIENT) 14.1 SEC (9.7-13.0)
[2019-10-31] MEDS ORDERED: PT OWN MED DRAWER 7, Y5N ONE ×2 (09:22→10:16)
[2019-10-31] MEDS: ENOXAPARIN SQ SCH ×3 (09:25→23:44)
[2019-10-31] MEDS: ACETAMINOPHEN 325 MG TABLET (FP) PO PRN (16:35)
[2019-10-31] MEDS: WARFARIN NA 5 MG TABLET PO SCH (17:23)
--- NOTE | 2019-11-01 08:08 | PN ---
Progress Note, Physician Chief Complaint: Patient seen and examined at the bedside, no acute events from last night, one bout of headache yesterday which subsided with Tylenol. History of Present Illness: This 59 yr old female with PMH of pulmonary embolism, obesity, gastric bypass, and GERD admitted via ER with an acute pain and edema of the right lower leg, and acute DVT of right popliteal and femoral veins. - Current Medication List Current Medications: Active Medications Acetaminophen (Tylenol -) 650 mg PO Q4H PRN PRN Reason: MODERATE PAIN Last Admin: 10/31/19 16:35 Dose: 650 mg Documented by: Enoxaparin Sodium 100 mg/ (Enoxaparin Sodium 35 mg) 135 mg SQ BID [facility] Last Admin: 10/31/19 23:44 Dose: 135 mg Documented by: Polyethylene Glycol (Miralax (For Daily Use) -) 17 gm PO DAILY PRN PRN Reason: CONSTIPATION Warfarin Sodium (Coumadin -) 15 mg PO DAILY@1800 [facility] Last Admin: 10/31/19 17:23 Dose: 15 mg Documented by: - Objective Vital Signs: Vital Signs Temperature 98.8 F 11/01/19 07:02 Pulse Rate 69 11/01/19 07:02 Respiratory Rate 11/01/19 07:02 Blood Pressure 143/82 11/01/19 07:02 O2 Sat by Pulse Oximetry (%) 100 10/31/19 21:00 Constitutional: Yes: Well Nourished, No Distress, Calm Eyes: Yes: Conjunctiva Clear, EOM Intact HENT: Yes: Atraumatic, Normocephalic Neck: Yes: Supple, Trachea Midline Cardiovascular: Yes: Regular Rate and Rhythm Respiratory: Yes: Regular, CTA Bilaterally Gastrointestinal: Yes: Normal Bowel Sounds, Soft ...Rectal Exam: Yes: Deferred Breast(s): Yes: WNL Musculoskeletal: Yes: WNL Extremities: Yes: WNL Edema: Yes Edema: RLE: 1+ Peripheral Pulses WNL: Yes Integumentary: Yes: WNL Neurological: Yes: WNL ...Motor Strength: WNL Psychiatric: Yes: WNL Labs: CBC, BMP 10/31/19 07:24 10/26/19 07:13 INR, PTT INR 1.19 (0.83-1.09) H 10/31/19 07:24 - ....Imaging Other: Report Reviewed (lab data reviewed) Problem List - Problems (1) Obesity Code(s): E66.9 - OBESITY, UNSPECIFIED (2) Leg pain, right Code(s): M79.604 - PAIN IN RIGHT LEG (3) COVID-19 Code(s): U07.1 - COVID POSITIVE (4) Influenza-like illness Code(s): J11.1 - FLU DUE TO UNIDENTIFIED INFLUENZA VIRUS W OTH RESP MANIFEST (5) Pulmonary embolism Code(s): I26.99 - OTHER PULMONARY EMBOLISM WITHOUT ACUTE COR PULMONALE (6) Shortness of breath Code(s): R06.02 - SHORTNESS OF BREATH (7) Deep vein thrombosis (DVT) of popliteal vein of right lower extremity Code(s): I82.431 - ACUTE EMBOLISM AND THROMBOSIS OF RIGHT POPLITEAL VEIN (8) Deep vein thrombosis (DVT) of femoral vein of right lower extremity Code(s): I82.411 - ACUTE EMBOLISM AND THROMBOSIS OF RIGHT FEMORAL VEIN (9) GERD (gastroesophageal reflux disease) Code(s): K21.9 - GASTRO-ESOPHAGEAL REFLUX DISEASE WITHOUT ESOPHAGITIS (10) H/O gastric bypass Code(s): Z98.84 - BARIATRIC SURGERY STATUS Assessment/Plan Assessment/plan: acute DVT of the right popliteal and femoral veins, acute pain and edema of the right lower leg, obesity, s/p gastric bypass, pulmonary embolism, anemia, GERD; daily inr, a/c with warfarin and lovenox, adjusting dose of warfarin, activity as tolerated.
[2019-11-01 08:53] LABS: BASO % 1.4 % (0-2.0); EOS % 0.5 % (0-4.5); HEMATOCRIT 36.4 % (32.4-45.2); HEMOGLOBIN 11.9 GM/dL (10.7-15.3); LYMPH % 43.2 % (8-40); MCH 29.7 pg (25.7-33.7); MCHC 32.6 g/dl (32.0-36.0); MEAN CELL VOLUME 91.1 fl (80-96); MEAN PLT VOLUME 8.1 fl (7.5-11.1); MONO % 5.7 % (3.8-10.2); NEUT % 49.2 % (42.8-82.8); PLATELET COUNT 404 K/MM3 (134-434); RDW 14.7 % (11.6-15.6); WHITE BLOOD COUNT 4.1 K/mm3 (4.0-10.0)
[2019-11-01 08:59] LABS: INR 1.36 (0.83-1.09); PROTHROMBIN TIME (PATIENT) 16.1 SEC (9.7-13.0)
[2019-11-01] MEDS: ENOXAPARIN SQ SCH ×2 (09:15→21:44)
[2019-11-01] MEDS: WARFARIN NA 5 MG TABLET PO SCH (17:49)
[2019-11-01] MEDS ORDERED: PT OWN MED DRAWER 7, Y5N ONE (21:30)
[2019-11-01] MEDS: ACETAMINOPHEN 325 MG TABLET (FP) PO PRN (21:44)
--- NOTE | 2019-11-02 08:27 | PN ---
Progress Note, Physician Chief Complaint: Patient seen and examined at the bedside, no acute events from last night, no signs of bleeding, no labored breathing or chest pain. History of Present Illness: This 59 yr old female with PMH of pulmonary embolism gastric bypass, GERD, and obesity admitted via ER with an acute pain and edema of the right lower leg, and an acute DVT of the right femoral and popliteal veins. - Current Medication List Current Medications: Active Medications Acetaminophen (Tylenol -) 650 mg PO Q4H PRN PRN Reason: MODERATE PAIN Last Admin: 11/01/19 21:44 Dose: 650 mg Documented by: Enoxaparin Sodium 100 mg/ (Enoxaparin Sodium 35 mg) 135 mg SQ BID ALEX Last Admin: 11/01/19 21:44 Dose: 135 mg Documented by: Polyethylene Glycol (Miralax (For Daily Use) -) 17 gm PO DAILY PRN PRN Reason: CONSTIPATION Warfarin Sodium (Coumadin -) 15 mg PO DAILY@1800 [facility] Last Admin: 11/01/19 17:49 Dose: 15 mg Documented by: - Objective Vital Signs: Vital Signs Temperature 98.4 F 11/02/19 07:30 Pulse Rate 67 11/02/19 07:30 Respiratory Rate 20 11/02/19 07:30 Blood Pressure 135/73 11/02/19 07:30 O2 Sat by Pulse Oximetry (%) 100 11/01/19 09:00 Constitutional: Yes: Well Nourished, No Distress, Calm Eyes: Yes: Conjunctiva Clear, EOM Intact HENT: Yes: Atraumatic, Normocephalic Neck: Yes: Supple, Trachea Midline Cardiovascular: Yes: Regular Rate and Rhythm Respiratory: Yes: Regular, CTA Bilaterally Gastrointestinal: Yes: Normal Bowel Sounds, Soft, Abdomen, Obese ...Rectal Exam: Yes: Deferred Genitourinary: Yes: WNL Breast(s): Yes: WNL Musculoskeletal: Yes: WNL Extremities: Yes: WNL Edema: Yes Edema: RLE: 1+ Peripheral Pulses WNL: Yes Integumentary: Yes: WNL Neurological: Yes: WNL ...Motor Strength: WNL Psychiatric: Yes: WNL Labs: CBC, BMP 11/01/19 07:58 10/26/19 07:13 INR, PTT INR 1.36 (0.83-1.09) H 11/01/19 07:58 - ....Imaging Other: Report Reviewed (lab data reviewed) Problem List - Problems (1) Obesity Code(s): E66.9 - OBESITY, UNSPECIFIED (2) Leg pain, right Code(s): M79.604 - PAIN IN RIGHT LEG (3) COVID-19 Code(s): U07.1 - COVID POSITIVE (4) Influenza-like illness Code(s): J11.1 - FLU DUE TO UNIDENTIFIED INFLUENZA VIRUS W OTH RESP MANIFEST (5) Pulmonary embolism Code(s): I26.99 - OTHER PULMONARY EMBOLISM WITHOUT ACUTE COR PULMONALE (6) Shortness of breath Code(s): R06.02 - SHORTNESS OF BREATH (7) Deep vein thrombosis (DVT) of popliteal vein of right lower extremity Code(s): I82.431 - ACUTE EMBOLISM AND THROMBOSIS OF RIGHT POPLITEAL VEIN (8) Deep vein thrombosis (DVT) of femoral vein of right lower extremity Code(s): I82.411 - ACUTE EMBOLISM AND THROMBOSIS OF RIGHT FEMORAL VEIN (9) GERD (gastroesophageal reflux disease) Code(s): K21.9 - GASTRO-ESOPHAGEAL REFLUX DISEASE WITHOUT ESOPHAGITIS (10) H/O gastric bypass Code(s): Z98.84 - BARIATRIC SURGERY STATUS Assessment/Plan Assessment/plan: acute pain and edema of the right lower leg, acute DVT of the right femoral and popliteal veins, pulmonary embolism, gastric bypass, GERD, anemia, obesity, Covid positive in August; a/c with Lovenox and warfarin, adjusting warfarin dosage, may ambulate as tolerated.
[2019-11-02 09:20] LABS: BASO % 0.9 % (0-2.0); EOS % 0.7 % (0-4.5); HEMATOCRIT 35.7 % (32.4-45.2); HEMOGLOBIN 11.5 GM/dL (10.7-15.3); LYMPH % 45.7 % (8-40); MCH 28.7 pg (25.7-33.7); MCHC 32.2 g/dl (32.0-36.0); MEAN CELL VOLUME 89.3 fl (80-96); MEAN PLT VOLUME 8.5 fl (7.5-11.1); MONO % 11.4 % (3.8-10.2); NEUT % 41.3 % (42.8-82.8); PLATELET COUNT 375 K/MM3 (134-434); RDW 14.5 % (11.6-15.6); WHITE BLOOD COUNT 3.7 K/mm3 (4.0-10.0)
[2019-11-02 09:54] LABS: INR 1.6 (0.83-1.09)
[2019-11-02] MEDS: ENOXAPARIN SQ SCH ×2 (10:12→21:16)
[2019-11-02] MEDS: WARFARIN NA 5 MG TABLET PO SCH (17:59)
[2019-11-02] MEDS ORDERED: PT OWN MED DRAWER 7, Y5N ONE (20:47)
[2019-11-03 07:44] LABS: INR 2.13 (0.83-1.09); PROTHROMBIN TIME (PATIENT) 25.3 SEC (9.7-13.0)
[2019-11-03] MEDS ORDERED: PT OWN MED DRAWER 7, Y5N ONE ×3 (08:28→09:45)
--- NOTE | 2019-11-03 09:08 | PN ---
Progress Note, Physician Chief Complaint: Patient seen and examined at the bedside, no acute events from last night, no signs of bleeding. History of Present Illness: This 59 yr old female with PMH of pulmonary embolism, obesity, GERD, and anemia admitted via ER with an acute pain and edema of the right lower leg and an acute DVT of the right femoral and popliteal veins. - Current Medication List Current Medications: Active Medications Acetaminophen (Tylenol -) 650 mg PO Q4H PRN PRN Reason: MODERATE PAIN Last Admin: 11/01/19 21:44 Dose: 650 mg Documented by: Enoxaparin Sodium 100 mg/ (Enoxaparin Sodium 35 mg) 135 mg SQ BID ALEX Last Admin: 11/02/19 21:16 Dose: 135 mg Documented by: Polyethylene Glycol (Miralax (For Daily Use) -) 17 gm PO DAILY PRN PRN Reason: CONSTIPATION Warfarin Sodium (Coumadin -) 15 mg PO DAILY@1800 [facility] Last Admin: 11/02/19 17:59 Dose: 15 mg Documented by: - Objective Vital Signs: Vital Signs Temperature 98.5 F 11/03/19 06:00 Pulse Rate 70 11/03/19 06:00 Respiratory Rate 18 11/03/19 07:40 Blood Pressure 148/88 11/03/19 06:00 O2 Sat by Pulse Oximetry (%) 99 11/03/19 07:40 Constitutional: Yes: Well Nourished, No Distress, Calm Eyes: Yes: Conjunctiva Clear, EOM Intact HENT: Yes: Atraumatic, Normocephalic Neck: Yes: Supple, Trachea Midline Cardiovascular: Yes: Regular Rate and Rhythm Respiratory: Yes: Regular, CTA Bilaterally Gastrointestinal: Yes: Normal Bowel Sounds, Soft ...Rectal Exam: Yes: Deferred Genitourinary: Yes: WNL Breast(s): Yes: WNL Musculoskeletal: Yes: WNL Extremities: Yes: WNL Edema: Yes Edema: RLE: 1+ Peripheral Pulses WNL: Yes Integumentary: Yes: WNL Neurological: Yes: WNL ...Motor Strength: WNL Psychiatric: Yes: WNL Labs: CBC, BMP 11/02/19 08:00 10/26/19 07:13 INR, PTT INR 2.13 (0.83-1.09) H 11/03/19 07:07 - ....Imaging Other: Report Reviewed (lab data reviewed) Problem List - Problems (1) Obesity Code(s): E66.9 - OBESITY, UNSPECIFIED (2) Leg pain, right Code(s): M79.604 - PAIN IN RIGHT LEG (3) COVID-19 Code(s): U07.1 - COVID POSITIVE (4) Influenza-like illness Code(s): J11.1 - FLU DUE TO UNIDENTIFIED INFLUENZA VIRUS W OTH RESP MANIFEST (5) Pulmonary embolism Code(s): I26.99 - OTHER PULMONARY EMBOLISM WITHOUT ACUTE COR PULMONALE (6) Shortness of breath Code(s): R06.02 - SHORTNESS OF BREATH (7) Deep vein thrombosis (DVT) of popliteal vein of right lower extremity Code(s): I82.431 - ACUTE EMBOLISM AND THROMBOSIS OF RIGHT POPLITEAL VEIN (8) Deep vein thrombosis (DVT) of femoral vein of right lower extremity Code(s): I82.411 - ACUTE EMBOLISM AND THROMBOSIS OF RIGHT FEMORAL VEIN (9) GERD (gastroesophageal reflux disease) Code(s): K21.9 - GASTRO-ESOPHAGEAL REFLUX DISEASE WITHOUT ESOPHAGITIS (10) H/O gastric bypass Code(s): Z98.84 - BARIATRIC SURGERY STATUS Assessment/Plan Assessment/plan: acute pain and edema of the right lower leg, acute DVT of the right femoral and popliteal veins, pulmonary embolism, obesity, GERD, anemia, s/p gastric bypass; a/c with Lovenox and Warfarin, adjusting dosage of Warfarin 12mg po daily, decrease Lovenox to 135mg SQ daily.
[2019-11-03] MEDS: ENOXAPARIN SQ SCH (09:51)
[2019-11-03] MEDS ORDERED: WARFARIN NA 5 MG TABLET PO SCH (11:00)
[2019-11-03] MEDS ORDERED: WARFARIN NA 10 MG, WARFARIN NA 2 MG PO SCH (18:00)
[2019-11-04 07:54] LABS: INR 1.98 (0.83-1.09); PROTHROMBIN TIME (PATIENT) 23.5 SEC (9.7-13.0)
[2019-11-04] MEDS ORDERED: PT OWN MED DRAWER 7, Y5N ONE (08:00)
--- NOTE | 2019-11-04 09:07 | PN ---
Progress Note, Physician Chief Complaint: Patient seen and examined at the bedside, no acute events from last night, no signs of bleeding or pain in the right leg. History of Present Illness: This 59 yr old female with PMH of pulmonary embolism, gastric bypass, obesity, GERD, and anemia admitted via ER with an acute pain and edema of the right lower leg, and an acute DVT of the right popliteal and femoral veins. - Current Medication List Current Medications: Active Medications Acetaminophen (Tylenol -) 650 mg PO Q4H PRN PRN Reason: MODERATE PAIN Last Admin: 11/01/19 21:44 Dose: 650 mg Documented by: Enoxaparin Sodium 100 mg/ (Enoxaparin Sodium 35 mg) 135 mg SQ DAILY ALEX Polyethylene Glycol (Miralax (For Daily Use) -) 17 gm PO DAILY PRN PRN Reason: CONSTIPATION Warfarin Sodium 10 mg/ (Warfarin Sodium 2 mg) 12 mg PO DAILY@1800 [facility] Last Admin: 11/03/19 17:02 Dose: 12 mg Documented by: - Objective Vital Signs: Vital Signs Temperature 98.0 F 11/04/19 06:00 Pulse Rate 78 11/04/19 06:00 Respiratory Rate 18 11/04/19 06:00 Blood Pressure 120/72 11/04/19 06:00 O2 Sat by Pulse Oximetry (%) 100 11/03/19 21:00 Constitutional: Yes: Well Nourished, No Distress, Calm Eyes: Yes: Conjunctiva Clear, EOM Intact HENT: Yes: Atraumatic, Normocephalic Neck: Yes: Supple, Trachea Midline Cardiovascular: Yes: Regular Rate and Rhythm Respiratory: Yes: Regular, CTA Bilaterally Gastrointestinal: Yes: Normal Bowel Sounds, Soft, Abdomen, Obese ...Rectal Exam: Yes: Deferred Genitourinary: Yes: WNL Breast(s): Yes: WNL Musculoskeletal: Yes: WNL Extremities: Yes: WNL Edema: Yes Edema: RLE: 1+ Peripheral Pulses WNL: Yes Integumentary: Yes: WNL Neurological: Yes: WNL ...Motor Strength: WNL Psychiatric: Yes: WNL Labs: CBC, BMP 11/02/19 08:00 10/26/19 07:13 INR, PTT INR 1.98 (0.83-1.09) H 11/04/19 06:45 - ....Imaging Other: Report Reviewed (lab data reviewed) Problem List - Problems (1) Obesity Code(s): E66.9 - OBESITY, UNSPECIFIED (2) Leg pain, right Code(s): M79.604 - PAIN IN RIGHT LEG (3) COVID-19 Code(s): U07.1 - COVID POSITIVE (4) Influenza-like illness Code(s): J11.1 - FLU DUE TO UNIDENTIFIED INFLUENZA VIRUS W OTH RESP MANIFEST (5) Pulmonary embolism Code(s): I26.99 - OTHER PULMONARY EMBOLISM WITHOUT ACUTE COR PULMONALE (6) Shortness of breath Code(s): R06.02 - SHORTNESS OF BREATH (7) Deep vein thrombosis (DVT) of popliteal vein of right lower extremity Code(s): I82.431 - ACUTE EMBOLISM AND THROMBOSIS OF RIGHT POPLITEAL VEIN (8) Deep vein thrombosis (DVT) of femoral vein of right lower extremity Code(s): I82.411 - ACUTE EMBOLISM AND THROMBOSIS OF RIGHT FEMORAL VEIN (9) GERD (gastroesophageal reflux disease) Code(s): K21.9 - GASTRO-ESOPHAGEAL REFLUX DISEASE WITHOUT ESOPHAGITIS (10) H/O gastric bypass Code(s): Z98.84 - BARIATRIC SURGERY STATUS Assessment/Plan Assessment/plan: acute pain and edema of the right lower leg, acute DVT of the right femoral and popliteal venis, gastric bypass, GERD, pulmonary embolism, personal hx of Covid 19 infection in August, obesity, anemia; d/c Lovenox, adjusting dosage of warfarin, may ambulate outside of room as tolerated.
[2019-11-04] MEDS ORDERED: ENOXAPARIN SQ SCH (10:00)
[2019-11-04] MEDS ORDERED: WARFARIN NA 7.5 MG TABLET (FP) PO SCH (18:00)
[2019-11-05 08:19] LABS: INR 1.89 (0.83-1.09); PROTHROMBIN TIME (PATIENT) 22.5 SEC (9.7-13.0)
[2019-11-05] MEDS ORDERED: WARFARIN NA 7.5 MG TABLET (FP) PO SCH (08:45)
--- NOTE | 2019-11-05 08:48 | PN ---
Progress Note, Physician Chief Complaint: Patient seen and examined at the bedside, no acute events from last night, no signs of bleeding or pain in the right lower leg. History of Present Illness: This 59 yr old female with PMH of pulmonary embolism, covid 19 infection in August, obesity, GERD, anemia, s/p gastric bypass admitted via ER with an acute pain and edema of the right lower leg, and an acute DVT of the right femoral and popliteal veins. - Current Medication List Current Medications: Active Medications Acetaminophen (Tylenol -) 650 mg PO Q4H PRN PRN Reason: MODERATE PAIN Last Admin: 11/01/19 21:44 Dose: 650 mg Documented by: Polyethylene Glycol (Miralax (For Daily Use) -) 17 gm PO DAILY PRN PRN Reason: CONSTIPATION Warfarin Sodium (Coumadin -) 17 mg PO DAILY@1800 [facility] - Objective Vital Signs: Vital Signs Temperature 98.4 F 11/05/19 06:00 Pulse Rate 78 11/05/19 06:00 Respiratory Rate 20 11/05/19 06:00 Blood Pressure 131/48 L 11/05/19 06:00 O2 Sat by Pulse Oximetry (%) 98 11/04/19 20:02 Constitutional: Yes: Well Nourished, No Distress, Calm Eyes: Yes: Conjunctiva Clear, EOM Intact HENT: Yes: Atraumatic, Normocephalic Neck: Yes: Supple, Trachea Midline Cardiovascular: Yes: Regular Rate and Rhythm Respiratory: Yes: Regular, CTA Bilaterally Gastrointestinal: Yes: Normal Bowel Sounds, Soft ...Rectal Exam: Yes: Deferred Genitourinary: Yes: WNL Breast(s): Yes: WNL Musculoskeletal: Yes: WNL Extremities: Yes: WNL Edema: Yes Edema: RLE: 1+ Peripheral Pulses WNL: Yes Integumentary: Yes: WNL Neurological: Yes: WNL ...Motor Strength: WNL Psychiatric: Yes: WNL Labs: CBC, BMP 11/02/19 08:00 10/26/19 07:13 INR, PTT INR 1.89 (0.83-1.09) H 11/05/19 06:35 - ....Imaging Other: Report Reviewed (lab data reviewed) Problem List - Problems (1) Obesity Code(s): E66.9 - OBESITY, UNSPECIFIED (2) Leg pain, right Code(s): M79.604 - PAIN IN RIGHT LEG (3) COVID-19 Code(s): U07.1 - COVID POSITIVE (4) Influenza-like illness Code(s): J11.1 - FLU DUE TO UNIDENTIFIED INFLUENZA VIRUS W OTH RESP MANIFEST (5) Pulmonary embolism Code(s): I26.99 - OTHER PULMONARY EMBOLISM WITHOUT ACUTE COR PULMONALE (6) Shortness of breath Code(s): R06.02 - SHORTNESS OF BREATH (7) Deep vein thrombosis (DVT) of popliteal vein of right lower extremity Code(s): I82.431 - ACUTE EMBOLISM AND THROMBOSIS OF RIGHT POPLITEAL VEIN (8) Deep vein thrombosis (DVT) of femoral vein of right lower extremity Code(s): I82.411 - ACUTE EMBOLISM AND THROMBOSIS OF RIGHT FEMORAL VEIN (9) GERD (gastroesophageal reflux disease) Code(s): K21.9 - GASTRO-ESOPHAGEAL REFLUX DISEASE WITHOUT ESOPHAGITIS (10) H/O gastric bypass Code(s): Z98.84 - BARIATRIC SURGERY STATUS Assessment/Plan Assessment/plan: acute pain and edema of the right lower leg, acute DVT of the right femoral and popliteal veins, pulmonary embolism, GERD, anemia, s/p gastric bypass; Warfarin 17mg po daily, adjusting warfarin dosage, today's INR 1.89.
[2019-11-05] MEDS ORDERED: WARFARIN NA 5 MG TABLET ONE (18:04)
[2019-11-05] MEDS ORDERED: WARFARIN NA 10 MG TABLET ONE (18:04)
[2019-11-05] MEDS ORDERED: WARFARIN NA 2 MG TABLET ONE (18:05)
[2019-11-05] MEDS: WARFARIN NA PO SCH (18:09)
[2019-11-06 09:03] LABS: INR 2.16 (0.83-1.09); PROTHROMBIN TIME (PATIENT) 25.7 SEC (9.7-13.0)
--- NOTE | 2019-11-06 09:07 | PN ---
Progress Note, Physician Chief Complaint: Patient seen and examined at the bedside, no acute events from last night, concerned about the high dosage of Coumadin that she requires for INR to be between 2 and 3. History of Present Illness: This 59 yr old female with PMH of Covid 19 infection in August, pu lmonary embolism, s/p gastric bypass, GERD admitted with an acute pain and edema of the right lower leg, and an acute DVT of right femoral and popliteal veins. - Current Medication List Current Medications: Active Medications Acetaminophen (Tylenol -) 650 mg PO Q4H PRN PRN Reason: MODERATE PAIN Last Admin: 11/01/19 21:44 Dose: 650 mg Documented by: Polyethylene Glycol (Miralax (For Daily Use) -) 17 gm PO DAILY PRN PRN Reason: CONSTIPATION Warfarin Sodium 10 mg/Warfarin Sodium 2 mg/ Warfarin Sodium 5 mg 17 mg PO DAILY@1800 [facility] Last Admin: 11/05/19 18:09 Dose: 17 mg Documented by: - Objective Vital Signs: Vital Signs Temperature 98.6 F 11/06/19 05:55 Pulse Rate 63 11/06/19 05:55 Respiratory Rate 18 11/06/19 05:55 Blood Pressure 126/78 11/06/19 05:55 O2 Sat by Pulse Oximetry (%) 98 11/05/19 21:00 Constitutional: Yes: Well Nourished, No Distress, Calm Eyes: Yes: Conjunctiva Clear, EOM Intact HENT: Yes: Atraumatic, Normocephalic Neck: Yes: Supple, Trachea Midline Cardiovascular: Yes: Regular Rate and Rhythm Respiratory: Yes: Regular, CTA Bilaterally Gastrointestinal: Yes: Normal Bowel Sounds, Soft, Abdomen, Obese ...Rectal Exam: Yes: Deferred Genitourinary: Yes: WNL Breast(s): Yes: WNL Musculoskeletal: Yes: WNL Extremities: Yes: WNL Edema: Yes Edema: RLE: 1+ Peripheral Pulses WNL: Yes Integumentary: Yes: WNL Neurological: Yes: WNL ...Motor Strength: WNL Psychiatric: Yes: WNL Labs: CBC, BMP 11/02/19 08:00 10/26/19 07:13 INR, PTT INR 2.16 (0.83-1.09) H 11/06/19 07:09 - ....Imaging Other: Report Reviewed (lab data reviewed) Problem List - Problems (1) Obesity Code(s): E66.9 - OBESITY, UNSPECIFIED (2) Leg pain, right Code(s): M79.604 - PAIN IN RIGHT LEG (3) COVID-19 Code(s): U07.1 - COVID POSITIVE (4) Influenza-like illness Code(s): J11.1 - FLU DUE TO UNIDENTIFIED INFLUENZA VIRUS W OTH RESP MANIFEST (5) Pulmonary embolism Code(s): I26.99 - OTHER PULMONARY EMBOLISM WITHOUT ACUTE COR PULMONALE (6) Shortness of breath Code(s): R06.02 - SHORTNESS OF BREATH (7) Deep vein thrombosis (DVT) of popliteal vein of right lower extremity Code(s): I82.431 - ACUTE EMBOLISM AND THROMBOSIS OF RIGHT POPLITEAL VEIN (8) Deep vein thrombosis (DVT) of femoral vein of right lower extremity Code(s): I82.411 - ACUTE EMBOLISM AND THROMBOSIS OF RIGHT FEMORAL VEIN (9) GERD (gastroesophageal reflux disease) Code(s): K21.9 - GASTRO-ESOPHAGEAL REFLUX DISEASE WITHOUT ESOPHAGITIS (10) H/O gastric bypass Code(s): Z98.84 - BARIATRIC SURGERY STATUS Assessment/Plan Assessment/plan: acute pain and edema of the right lower leg, acute DVT of the right popliteal and femoral veins, pulmonary embolism, personal hx of acute Covid 19 infection in August, obesity, s/p gastric bypass, GERD; Warfarin 17mg po daily, today's INR 2.16, adjusting dose of Warfarin, consult to Mortgage Loan Interviewer - concern about the medically necessary high dosage of warfarin to maintain INR between 2 and 3, may ambulate outside of room as tolerated.
--- NOTE | 2019-11-06 12:04 | CONSULT ---
Consultation: REQUESTING PROVIDER: Dr. Song CONSULT REQUEST: We have been asked to medically evaluate this patient for High dose of Warfarin. HISTORY OF PRESENT ILLNESS: Pt. is a 59 y.o. F w/ PMHx. Obesity, Hx. of Gastric Byass of PE/DVT(while on Eliquis) after recent infection with COVID-19 (in August). Pt. was treated with cather directed tPA and prescribed Eliquis. Pt. presented for RLE edema and pain and was noted to have extensive DVT that had worsened from prior DVT studies in August. Pt. therefore failed Eliquis and was transitioned to Coumadin and bridged with Lovenox. Hospital course complicated by increasing Warfarin requirements. This has made the Pt. anxious about the escalating doses an we are called to assess and discuss with Pt. why. Discussed at length Pt.'s options for AC, given that she is frustrated and concerned at the high levels of Warfarin. Pt. states that she is agreeable to using Lovenox as her AC. Pt. endorses that her pain has resolved in her leg. REVIEW OF SYSTEMS: As above PHYSICAL EXAMINATION Vital Signs - 24 hr 11/05/19 11/05/19 11/05/19 14:00 17:46 21:00 Temperature 98.5 F 98.2 F Pulse Rate 67 73 Respiratory 20 20 Rate Blood Pressure 152/88 131/76 O2 Sat by Pulse 98 Oximetry (%) 11/05/19 11/06/19 11/06/19 21:45 05:55 09:00 Temperature 98.5 F 98.6 F Pulse Rate 66 63 Respiratory 20 18 18 Rate Blood Pressure 133/64 126/78 O2 Sat by Pulse 98 Oximetry (%) 11/06/19 11/06/19 10:00 11:53 Temperature 98.6 F 98.0 F Pulse Rate 63 67 Respiratory 18 18 Rate Blood Pressure 126/78 141/85 O2 Sat by Pulse Oximetry (%) GENERAL: Awake, alert, and fully oriented, in no acute distress. HEAD: Normal with no signs of trauma. EYES: Extraocular movements intact, sclera anicteric, conjunctiva clear. EARS, NOSE, THROAT: Moist mucous membranes. NECK: Normal range of motion, supple without lymphadenopathy, JVD, or masses. LUNGS: No accessory muscle use. ABDOMEN: Soft, nontender, not distended, no guarding, no rebound, no masses. NEUROLOGICAL: Normal speech. Gait not assessed. PSYCHIATRIC: Cooperative. Good eye contact. Appropriate mood and affect. SKIN: Warm, dry, normal turgor Laboratory Results - last 24 hr 11/06/19 07:09 PT with INR 25.70 H INR 2.16 H Active Medications Generic Name Dose Route Start Last Admin Trade Name Freq PRN Reason Stop Dose Admin Acetaminophen 650 mg 10/26/19 09:07 11/01/19 21:44 Tylenol - PO 650 mg Q4H PRN Administration MODERATE PAIN Polyethylene Glycol 17 gm 10/28/19 09:30 Miralax (For Daily Use) - PO DAILY PRN CONSTIPATION Warfarin Sodium 10 mg/ 17 mg 11/05/19 18:00 11/05/19 18:09 Warfarin Sodium 2 mg/ Warfarin PO 17 mg Sodium 5 mg DAILY@1800 [facility] Administration ASSESSMENT/PLAN: Pt. is a 59 y.o. F w/ PMHx. Obesity, Hx. of Gastric Byass of PE/DVT(while on Eliquis) after recent infection with COVID-19 (in August). #RLE DVT c/w Warfarin 17 mg Daily monitor INR counseled Pt. about consistency of diet Higher doses of Warfarin are associated with obesity. Pt. is morbidly obese and there fore has increased colon with increased Vitamin K production (clearance), increased volume of distribution necessitating increased amounts of Warfarin. Cannot rule out genetic etiology of VKORC1 and CYP2C9 variants which studies have shown to be the largest cause of variation. There is no upper limit of warfarin dosing. Would recommend Lovenox 1mg/kg BID dosing as an alternative to Warfarin It is reasonable to perform malignancy work up with CT A/P with contrast and age appropriate screening of colonoscopy, mammogram and PAP Smear as outpatient. Dispo: We will continue to follow the patient. Thank you for this consultative opportunity. Visit type - Emergency Visit Emergency Visit: Yes ED Registration Date: 10/25/19 Care time: The patient presented to the Emergency Department on the above date and was hospitalized for further evaluation of their emergent condition. - New Patient This patient is new to me today: No - Critical Care Critical Care patient: No ATTENDING PHYSICIAN STATEMENT I saw and evaluated the patient. I reviewed the resident's note and discussed the case with the resident. I agree with the resident's findings and plan as documented. SUBJECTIVE: OBJECTIVE: ASSESSMENT AND PLAN:
[2019-11-06] MEDS ORDERED: WARFARIN NA 2 MG TABLET ONE (17:50)
[2019-11-06] MEDS ORDERED: WARFARIN NA 5 MG TABLET ONE (17:50)
[2019-11-06] MEDS ORDERED: WARFARIN NA 10 MG TABLET ONE (17:50)
[2019-11-06] MEDS: WARFARIN NA PO SCH (19:00)
--- NOTE | 2019-11-07 06:48 | PN ---
Teaching Attending Note Name of Resident: Syed Winters ATTENDING PHYSICIAN STATEMENT I saw and evaluated the patient. I reviewed the resident's note and discussed the case with the resident. I agree with the resident's findings and plan as documented. ASSESSMENT AND PLAN: Pt. is a 59 y.o. F w/ PMHx. Obesity, Hx. of Gastric Byass of PE/DVT 09/14 at the time of diagnosis with COVID-19 ( 09/14/19). s/p thrombolysis of PE Was discharged home that admission on eliquis 5 mg bid. Presented 10/24 with RLE pain and noted to have development of rt. distal femoral DVT in addition to polpliteal DVT while on eliquis. Bridged with lovenox to coumadin Hypercoagulable state of COVID provoked DVT/PE?? PRogression of DVT on eliquis Now on lovenox bridged to coumadin 17mg daily with INR 2.1 Given her BMI is requiing higher doses of coumadin. Continuing coumadin, titrating dose per INR closely discussed with patient PEr her dietary preferences she would want to condier lovenox 1mg/kg -- 130mg bid. Lovenox dosing in obesity could result in variable exposure and hence monitoring with antiXa levels is considered. USually checked 4 hrs. after lovenox dose Will need age appropriate cancer screening. Discussed wt. loss Since DVT/PE may be provoked due to hypercoagulable state of COVID--? 3 months of a/c Reevaluate at that time period will discuss with PMD
--- NOTE | 2019-11-07 08:12 | PN ---
Progress Note, Physician Chief Complaint: Patient seen and examined at the bedside, no acute events from last night, open wound of the left lower leg. History of Present Illness: This 59 yr old female with PMH of pulmonary embolism, s/p Covid 19 infection in August, obesity, s/p gastric bypass, GERD admitted with an acute pain and edema of the right lower leg, and an acute DVT of the right femoral and popliteal veins. - Current Medication List Current Medications: Active Medications Acetaminophen (Tylenol -) 650 mg PO Q4H PRN PRN Reason: MODERATE PAIN Last Admin: 11/01/19 21:44 Dose: 650 mg Documented by: Polyethylene Glycol (Miralax (For Daily Use) -) 17 gm PO DAILY PRN PRN Reason: CONSTIPATION Warfarin Sodium 10 mg/Warfarin Sodium 2 mg/ Warfarin Sodium 5 mg 17 mg PO DAILY@1800 ALEX Last Admin: 11/06/19 19:00 Dose: 17 mg Documented by: - Objective Vital Signs: Vital Signs Temperature 98.1 F 11/07/19 06:00 Pulse Rate 79 11/07/19 06:00 Respiratory Rate 18 11/07/19 06:00 Blood Pressure 142/92 11/07/19 06:00 O2 Sat by Pulse Oximetry (%) 100 11/06/19 21:00 Constitutional: Yes: Well Nourished, No Distress, Calm Eyes: Yes: Conjunctiva Clear, EOM Intact HENT: Yes: Atraumatic, Normocephalic Neck: Yes: Supple, Trachea Midline Cardiovascular: Yes: Regular Rate and Rhythm Respiratory: Yes: Regular, CTA Bilaterally Gastrointestinal: Yes: Normal Bowel Sounds, Soft, Abdomen, Obese ...Rectal Exam: Yes: Deferred Genitourinary: Yes: WNL Breast(s): Yes: WNL Musculoskeletal: Yes: WNL Extremities: Yes: WNL Edema: No Peripheral Pulses WNL: Yes Integumentary: Yes: Skin Tear (left lowerl leg) Wound/Incision: Yes: Open to air Neurological: Yes: WNL ...Motor Strength: WNL Psychiatric: Yes: WNL Labs: CBC, BMP 11/02/19 08:00 10/26/19 07:13 INR, PTT INR 2.16 (0.83-1.09) H 11/06/19 07:09 - ....Imaging Other: Report Reviewed (lab reviewed) Problem List - Problems (1) Obesity Code(s): E66.9 - OBESITY, UNSPECIFIED (2) Leg pain, right Code(s): M79.604 - PAIN IN RIGHT LEG (3) COVID-19 Code(s): U07.1 - COVID POSITIVE (4) Influenza-like illness Code(s): J11.1 - FLU DUE TO UNIDENTIFIED INFLUENZA VIRUS W OTH RESP MANIFEST (5) Pulmonary embolism Code(s): I26.99 - OTHER PULMONARY EMBOLISM WITHOUT ACUTE COR PULMONALE (6) Shortness of breath Code(s): R06.02 - SHORTNESS OF BREATH (7) Deep vein thrombosis (DVT) of popliteal vein of right lower extremity Code(s): I82.431 - ACUTE EMBOLISM AND THROMBOSIS OF RIGHT POPLITEAL VEIN (8) Deep vein thrombosis (DVT) of femoral vein of right lower extremity Code(s): I82.411 - ACUTE EMBOLISM AND THROMBOSIS OF RIGHT FEMORAL VEIN (9) GERD (gastroesophageal reflux disease) Code(s): K21.9 - GASTRO-ESOPHAGEAL REFLUX DISEASE WITHOUT ESOPHAGITIS (10) H/O gastric bypass Code(s): Z98.84 - BARIATRIC SURGERY STATUS (11) Open wound of left lower leg Code(s): S81.802A - UNSPECIFIED OPEN WOUND, LEFT LOWER LEG, INITIAL ENCOUNTER Assessment/Plan Assessment/plan: acute pain and edema of the right lower leg, acute DVT of the right femoral and popliteal veins, acute small open wound of the left lower leg, pulmonary embolism, s/p gastric bypass, GERED, obesity; Warfarin 17mg po daily, adjusting dosage of warfarin, Bacitracin ointment for open wound of the left lower leg.
[2019-11-07] MEDS: BACITRACIN 15 GM TUBE TOPICAL OINTMENT TP SCH ×2 (10:13→21:21)
[2019-11-07 11:01] LABS: INR 2.62 (0.83-1.09); PROTHROMBIN TIME (PATIENT) 31.2 SEC (9.7-13.0)
[2019-11-07] MEDS ORDERED: WARFARIN NA 10 MG TABLET PO SCH (11:54)
[2019-11-07] MEDS ORDERED: WARFARIN NA PO SCH (18:00)
[2019-11-07] MEDS ORDERED: PT OWN MED DRAWER 7, Y5N ONE (18:34)
--- NOTE | 2019-11-08 08:30 | PN ---
Progress Note, Physician Chief Complaint: Patient seen and examined at the bedside, no acute events from last night, open wound of the left lower leg. History of Present Illness: This 59 yr old female with PMH of pulmonary embolism, Covid 19 infection in August, obesity, GERD admitted via ER with an acute pain and edema of the right lower leg, and an acute DVT of the right femoral and popliteal veins. - Current Medication List Current Medications: Active Medications Acetaminophen (Tylenol -) 650 mg PO Q4H PRN PRN Reason: MODERATE PAIN Last Admin: 11/01/19 21:44 Dose: 650 mg Documented by: Bacitracin (Bacitracin -) 1 applic TP BID ALEX Last Admin: 11/07/19 21:21 Dose: 1 applic Documented by: Polyethylene Glycol (Miralax (For Daily Use) -) 17 gm PO DAILY PRN PRN Reason: CONSTIPATION Warfarin Sodium 10 mg/Warfarin Sodium 5 mg/ Warfarin Sodium 1 mg 16 mg PO DAILY@1800 [facility] Last Admin: 11/07/19 18:38 Dose: 16 mg Documented by: - Objective Vital Signs: Vital Signs Temperature 97.8 F 11/08/19 06:00 Pulse Rate 59 L 11/08/19 06:00 Respiratory Rate 18 11/08/19 06:00 Blood Pressure 112/58 L 11/08/19 06:00 O2 Sat by Pulse Oximetry (%) 98 11/07/19 21:00 Constitutional: Yes: Well Nourished, No Distress, Calm Eyes: Yes: Conjunctiva Clear, EOM Intact HENT: Yes: Atraumatic, Normocephalic Neck: Yes: Supple, Trachea Midline Cardiovascular: Yes: Regular Rate and Rhythm Respiratory: Yes: Regular, CTA Bilaterally Gastrointestinal: Yes: Normal Bowel Sounds, Soft ...Rectal Exam: Yes: Deferred Genitourinary: Yes: WNL Breast(s): Yes: WNL Musculoskeletal: Yes: Muscle Weakness Extremities: Yes: WNL Edema: Yes Edema: RLE: 1+ Peripheral Pulses WNL: Yes Integumentary: Yes: Skin Tear (left lowere leg) Neurological: Yes: WNL ...Motor Strength: WNL Psychiatric: Yes: WNL Labs: CBC, BMP 11/02/19 08:00 10/26/19 07:13 INR, PTT INR 2.62 (0.83-1.09) H 11/07/19 10:26 - ....Imaging Other: Report Reviewed (lab data reviewed) Problem List - Problems (1) Obesity Code(s): E66.9 - OBESITY, UNSPECIFIED (2) Leg pain, right Code(s): M79.604 - PAIN IN RIGHT LEG (3) COVID-19 Code(s): U07.1 - COVID POSITIVE (4) Influenza-like illness Code(s): J11.1 - FLU DUE TO UNIDENTIFIED INFLUENZA VIRUS W OTH RESP MANIFEST (5) Pulmonary embolism Code(s): I26.99 - OTHER PULMONARY EMBOLISM WITHOUT ACUTE COR PULMONALE (6) Shortness of breath Code(s): R06.02 - SHORTNESS OF BREATH (7) Deep vein thrombosis (DVT) of popliteal vein of right lower extremity Code(s): I82.431 - ACUTE EMBOLISM AND THROMBOSIS OF RIGHT POPLITEAL VEIN (8) Deep vein thrombosis (DVT) of femoral vein of right lower extremity Code(s): I82.411 - ACUTE EMBOLISM AND THROMBOSIS OF RIGHT FEMORAL VEIN (9) GERD (gastroesophageal reflux disease) Code(s): K21.9 - GASTRO-ESOPHAGEAL REFLUX DISEASE WITHOUT ESOPHAGITIS (10) H/O gastric bypass Code(s): Z98.84 - BARIATRIC SURGERY STATUS (11) Open wound of left lower leg Code(s): S81.802A - UNSPECIFIED OPEN WOUND, LEFT LOWER LEG, INITIAL ENCOUNTER Assessment/Plan Assessment/plan: acute pain and edema of the right lower leg, acute DVT of the right femoral and popliteal veins, s/p Covid 19 infection in August, pulmonary embolism, GERD, anemia, obesity; Warfarin 16mg po daily, adjusting warfarin dosage, topical Bacitracin ointment to open wound of the left lower leg.
[2019-11-08 10:50] LABS: INR 3.18 (0.83-1.09)
[2019-11-08] MEDS ORDERED: WARFARIN NA 5 MG TABLET PO SCH (10:52)
[2019-11-08] MEDS: BACITRACIN 15 GM TUBE TOPICAL OINTMENT TP SCH ×2 (11:17→21:07)
[2019-11-08 11:58] LABS: BASO % 1.8 % (0-2.0); EOS % 0.9 % (0-4.5); HEMATOCRIT 35.8 % (32.4-45.2); HEMOGLOBIN 11.7 GM/dL (10.7-15.3); LYMPH % 48.2 % (8-40); MCH 29.2 pg (25.7-33.7); MCHC 32.7 g/dl (32.0-36.0); MEAN CELL VOLUME 89.4 fl (80-96); MEAN PLT VOLUME 8.5 fl (7.5-11.1); MONO % 11.3 % (3.8-10.2); NEUT % 37.8 % (42.8-82.8); PLATELET COUNT 382 K/MM3 (134-434); RDW 14.5 % (11.6-15.6); WHITE BLOOD COUNT 3.6 K/mm3 (4.0-10.0)
[2019-11-08] MEDS ORDERED: INSULIN (NOVOLOG) ASPART 100 UNITS/ML 10ML VIAL ONE (21:33)
[2019-11-09 08:16] LABS: INR 3.55 (0.83-1.09); PROTHROMBIN TIME (PATIENT) 42.4 SEC (9.7-13.0)
[2019-11-09] MEDS ORDERED: WARFARIN NA 5 MG TABLET PO SCH (09:14)
--- NOTE | 2019-11-09 09:15 | PN ---
Progress Note, Physician Chief Complaint: Patient seen and examined at the bedside, no acute events from last night, no signs of bleeding, healing open wound of the left lower leg. History of Present Illness: This 59 yr old female with PMH of pulmonary embolism, Covid 19 infection in August, obesity, GERD, anemia, and s/p gastric bypass admitted via ER with an acute pain and edema of the right lower leg, and an acute DVT of the right femoral and popliteal veins. - Current Medication List Current Medications: Active Medications Acetaminophen (Tylenol -) 650 mg PO Q4H PRN PRN Reason: MODERATE PAIN Last Admin: 11/01/19 21:44 Dose: 650 mg Documented by: Bacitracin (Bacitracin -) 1 applic TP BID ALEX Last Admin: 11/08/19 21:07 Dose: 1 applic Documented by: Polyethylene Glycol (Miralax (For Daily Use) -) 17 gm PO DAILY PRN PRN Reason: CONSTIPATION Warfarin Sodium (Coumadin -) 15 mg PO DAILY@1800 ALEX Last Admin: 11/08/19 17:20 Dose: 15 mg Documented by: - Objective Vital Signs: Vital Signs Temperature 98.3 F 11/09/19 06:00 Pulse Rate 79 11/09/19 06:00 Respiratory Rate 18 11/09/19 06:00 Blood Pressure 116/88 11/09/19 06:00 O2 Sat by Pulse Oximetry (%) 98 11/08/19 20:05 Constitutional: Yes: Well Nourished, No Distress, Calm Eyes: Yes: Conjunctiva Clear, EOM Intact HENT: Yes: Atraumatic, Normocephalic Neck: Yes: Supple, Trachea Midline Cardiovascular: Yes: Regular Rate and Rhythm Respiratory: Yes: Regular, CTA Bilaterally Gastrointestinal: Yes: Normal Bowel Sounds, Soft ...Rectal Exam: Yes: Deferred Genitourinary: Yes: WNL Breast(s): Yes: WNL Musculoskeletal: Yes: WNL Extremities: Yes: Other (gradually healing open wound of the left lower leg) Edema: Yes Edema: RLE: 1+ Peripheral Pulses WNL: Yes Integumentary: Yes: Skin Tear (left lower leg) Wound/Incision: Yes: Open to air Neurological: Yes: WNL ...Motor Strength: WNL Psychiatric: Yes: WNL Labs: CBC, BMP 11/08/19 11:19 10/26/19 07:13 INR, PTT INR 3.55 (0.83-1.09) H 11/09/19 06:45 - ....Imaging Other: Report Reviewed (lab data reviewed) Problem List - Problems (1) Obesity Code(s): E66.9 - OBESITY, UNSPECIFIED (2) Leg pain, right Code(s): M79.604 - PAIN IN RIGHT LEG (3) COVID-19 Code(s): U07.1 - COVID POSITIVE (4) Influenza-like illness Code(s): J11.1 - FLU DUE TO UNIDENTIFIED INFLUENZA VIRUS W OTH RESP MANIFEST (5) Pulmonary embolism Code(s): I26.99 - OTHER PULMONARY EMBOLISM WITHOUT ACUTE COR PULMONALE (6) Shortness of breath Code(s): R06.02 - SHORTNESS OF BREATH (7) Deep vein thrombosis (DVT) of popliteal vein of right lower extremity Code(s): I82.431 - ACUTE EMBOLISM AND THROMBOSIS OF RIGHT POPLITEAL VEIN (8) Deep vein thrombosis (DVT) of femoral vein of right lower extremity Code(s): I82.411 - ACUTE EMBOLISM AND THROMBOSIS OF RIGHT FEMORAL VEIN (9) GERD (gastroesophageal reflux disease) Code(s): K21.9 - GASTRO-ESOPHAGEAL REFLUX DISEASE WITHOUT ESOPHAGITIS (10) H/O gastric bypass Code(s): Z98.84 - BARIATRIC SURGERY STATUS (11) Open wound of left lower leg Code(s): S81.802A - UNSPECIFIED OPEN WOUND, LEFT LOWER LEG, INITIAL ENCOUNTER Assessment/Plan Assessment/plan: acute pain and edema of the right lower leg, acute DVT of the right femoral and popliteal veins, pulmonary embolism, Covid 19 infection in August, obesity, GERD, anemia, s/p gastric bypass; INR 3.55, warfarin 12mg po today, adjusting dosage of warfarin.
[2019-11-09] MEDS ORDERED: PT OWN MED DRAWER 7, Y5N ONE ×2 (09:23→09:55)
[2019-11-09] MEDS: BACITRACIN 15 GM TUBE TOPICAL OINTMENT TP SCH ×2 (09:51→21:59)
[2019-11-09] MEDS: ACETAMINOPHEN 325 MG TABLET (FP) PO PRN (11:04)
[2019-11-09] MEDS ORDERED: WARFARIN NA 10 MG TABLET ONE (17:10)
[2019-11-09] MEDS ORDERED: WARFARIN NA 2 MG TABLET ONE (17:10)
[2019-11-09] MEDS ORDERED: WARFARIN NA 10 MG, WARFARIN NA 2 MG PO SCH (18:00)
--- NOTE | 2019-11-09 23:40 | PN.HO ---
Progress Note (short form) - Note Progress Note: Discussed with PMD Given her obesity/BMI would prefer coumadin over lovenox. Lovenox with variable exposures in obesity -- will need monitoring of anti Xa levels
[2019-11-10 07:18] LABS: PROTHROMBIN TIME (PATIENT) 49.5 SEC (9.7-13.0)
[2019-11-10 08:00] LABS: INR 4.14 (0.83-1.09)
[2019-11-10] MEDS: POLYETHYLENE GLYCOL 3350 119 GM BTL PO PRN ×2 (08:31→21:09)
--- NOTE | 2019-11-10 09:06 | PN ---
Progress Note, Physician Chief Complaint: Patient seen and examined at the bedside, no acute events from last night, no signs of bleeding. History of Present Illness: This 59 yr old female with PMH of pulmonary embolism, Covid 19 infection in August, obesity, s/p gastric bypass, anemia, GERD admitted via ER with an acute pain and edema of the right lower extremity and an acute DVT of the right femoral and popliteal veins. - Current Medication List Current Medications: Active Medications Acetaminophen (Tylenol -) 650 mg PO Q4H PRN PRN Reason: MODERATE PAIN Last Admin: 11/09/19 11:04 Dose: 650 mg Documented by: Bacitracin (Bacitracin -) 1 applic TP BID [facility] Last Admin: 11/09/19 21:59 Dose: 1 applic Documented by: Polyethylene Glycol (Miralax (For Daily Use) -) 17 gm PO DAILY PRN PRN Reason: CONSTIPATION Last Admin: 11/10/19 08:31 Dose: 17 grams Documented by: Warfarin Sodium 10 mg/ (Warfarin Sodium 2 mg) 12 mg PO DAILY@1800 [facility] Last Admin: 11/09/19 17:12 Dose: 12 mg Documented by: - Objective Vital Signs: Vital Signs Temperature 98.7 F 11/10/19 06:55 Pulse Rate 86 11/10/19 06:55 Respiratory Rate 20 11/10/19 06:55 Blood Pressure 117/74 11/10/19 06:55 O2 Sat by Pulse Oximetry (%) 99 11/09/19 21:00 Constitutional: Yes: Well Nourished, No Distress, Calm Eyes: Yes: Conjunctiva Clear, EOM Intact HENT: Yes: Atraumatic, Normocephalic Neck: Yes: Supple, Trachea Midline Cardiovascular: Yes: Regular Rate and Rhythm Respiratory: Yes: Regular, CTA Bilaterally Gastrointestinal: Yes: Normal Bowel Sounds, Soft, Abdomen, Obese ...Rectal Exam: Yes: Deferred Genitourinary: Yes: WNL Breast(s): Yes: WNL Musculoskeletal: Yes: WNL Extremities: Yes: WNL Edema: Yes Edema: RLE: 1+ Peripheral Pulses WNL: Yes Integumentary: Yes: WNL Neurological: Yes: WNL ...Motor Strength: WNL Psychiatric: Yes: WNL Labs: CBC, BMP 11/08/19 11:19 10/26/19 07:13 INR, PTT INR 4.14 (0.83-1.09) H* 11/10/19 06:22 - ....Imaging Other: Report Reviewed (lab data reviewed) Problem List - Problems (1) Obesity Code(s): E66.9 - OBESITY, UNSPECIFIED (2) Leg pain, right Code(s): M79.604 - PAIN IN RIGHT LEG (3) COVID-19 Code(s): U07.1 - COVID POSITIVE (4) Influenza-like illness Code(s): J11.1 - FLU DUE TO UNIDENTIFIED INFLUENZA VIRUS W OTH RESP MANIFEST (5) Pulmonary embolism Code(s): I26.99 - OTHER PULMONARY EMBOLISM WITHOUT ACUTE COR PULMONALE (6) Shortness of breath Code(s): R06.02 - SHORTNESS OF BREATH (7) Deep vein thrombosis (DVT) of popliteal vein of right lower extremity Code(s): I82.431 - ACUTE EMBOLISM AND THROMBOSIS OF RIGHT POPLITEAL VEIN (8) Deep vein thrombosis (DVT) of femoral vein of right lower extremity Code(s): I82.411 - ACUTE EMBOLISM AND THROMBOSIS OF RIGHT FEMORAL VEIN (9) GERD (gastroesophageal reflux disease) Code(s): K21.9 - GASTRO-ESOPHAGEAL REFLUX DISEASE WITHOUT ESOPHAGITIS (10) H/O gastric bypass Code(s): Z98.84 - BARIATRIC SURGERY STATUS (11) Open wound of left lower leg Code(s): S81.802A - UNSPECIFIED OPEN WOUND, LEFT LOWER LEG, INITIAL ENCOUNTER Assessment/Plan Assessment/plan: acute pain and edema of the right lower extremity, acute DVT of right femoral and popliteal veins, obesity, anemia, Covid 19 infection in August, pulmonary embolism, s/p gastric bypass; Hold Coumadin for today, today's INR 4.14, adjusting dosage of Coumadin.
[2019-11-10] MEDS: BACITRACIN 15 GM TUBE TOPICAL OINTMENT TP SCH ×2 (10:18→21:09)
--- NOTE | 2019-11-10 11:07 | PN ---
Physical Exam: SUBJECTIVE: Patient seen and examined. Pt. denies any acute complaints today. Discussed interactions between food and warfarin. OBJECTIVE: Vital Signs Period Temp Pulse Resp BP Sys/Paiz Pulse Ox Last 24 Hr 97.4 F-98.7 F 69-86 18-20 117-137/67-85 99 GENERAL: The patient is awake, alert, and fully oriented, in no acute distress. HEAD: Normal with no signs of trauma. EYES: sclera anicteric, conjunctiva clear. No ptosis. ENT: moist mucous membranes. LUNGS: no accessory muscle use. NEUROLOGICAL: Normal speech, gait not observed. PSYCH: Normal mood, normal affect. Laboratory Results - last 24 hr 11/08/19 11/10/19 11:19 06:22 PT with INR 49.50 H INR 4.14 H* CA 125 Antigen 4.1 Active Medications Generic Name Dose Route Start Last Admin Trade Name Freq PRN Reason Stop Dose Admin Acetaminophen 650 mg 10/26/19 09:07 11/09/19 11:04 Tylenol - PO 650 mg Q4H PRN Administration MODERATE PAIN Bacitracin 1 applic 11/07/19 10:00 11/10/19 10:18 Bacitracin - TP 1 applic BID ALEX Administration Polyethylene Glycol 17 gm 10/28/19 09:30 11/10/19 08:31 Miralax (For Daily Use) - PO 17 grams DAILY PRN Administration CONSTIPATION ASSESSMENT/PLAN: Pt. is a 59 y.o. F w/ PMHx. Obesity, Hx. of Gastric Byass of PE/DVT(while on Eliquis) after recent infection with COVID-19 (in August). #RLE DVT Warfarin dereased to 12 mg Daily, holding today's dose for INR at 4.14 monitor INR counseled Pt. about consistency of diet Higher doses of Warfarin are associated with obesity. Pt. is morbidly obese and there fore has increased colon with increased Vitamin K production (clearance), increased volume of distribution necessitating increased amounts of Warfarin. Cannot rule out genetic etiology of VKORC1 and CYP2C9 variants which studies have shown to be the largest cause of variation. There is no upper limit of warfarin dosing. Lovenox 1mg/kg BID dosing as an alternative to Warfarin however as this would require anti- Xa monitoring, would be more difficult to monitor. It is reasonable to perform malignancy work up with CT A/P with contrast and age appropriate screening of colonoscopy, mammogram and PAP Smear as outpatient. Visit type - Emergency Visit Emergency Visit: Yes ED Registration Date: 10/25/19 Care time: The patient presented to the Emergency Department on the above date and was hospitalized for further evaluation of their emergent condition. - New Patient This patient is new to me today: No - Critical Care Critical Care patient: No - Discharge Referral Referred to [facility] Med P.C[facility] No ATTENDING PHYSICIAN STATEMENT I saw and evaluated the patient. I reviewed the resident's note and discussed the case with the resident. I agree with the resident's findings and plan as documented. SUBJECTIVE: OBJECTIVE: ASSESSMENT AND PLAN:
[2019-11-11 06:46] LABS: INR 3.63 (0.83-1.09); PROTHROMBIN TIME (PATIENT) 43.4 SEC (9.7-13.0)
--- NOTE | 2019-11-11 08:50 | PN ---
Progress Note, Physician Chief Complaint: Patient seen and examined at the bedside, no acute events from last night, no signs of bleeding. History of Present Illness: This 59 yr old female with PMH of pulmonary embolism, obesity, GERD, anemia, s/p gastric bypass, Covid 19 infection in August admitted via ER with an acute pain and bronwyn of RLE and an acute DVT of the right femoral and popliteal veins. - Current Medication List Current Medications: Active Medications Acetaminophen (Tylenol -) 650 mg PO Q4H PRN PRN Reason: MODERATE PAIN Last Admin: 11/09/19 11:04 Dose: 650 mg Documented by: Bacitracin (Bacitracin -) 1 applic TP BID ALEX Last Admin: 11/10/19 21:09 Dose: 1 applic Documented by: Polyethylene Glycol (Miralax (For Daily Use) -) 17 gm PO DAILY PRN PRN Reason: CONSTIPATION Last Admin: 11/10/19 21:09 Dose: 17 grams Documented by: - Objective Vital Signs: Vital Signs Temperature 97.6 F 11/11/19 06:00 Pulse Rate 72 11/11/19 06:00 Respiratory Rate 11/11/19 06:00 Blood Pressure 122/77 11/11/19 06:00 O2 Sat by Pulse Oximetry (%) 100 11/10/19 21:00 Constitutional: Yes: Well Nourished, No Distress, Calm Eyes: Yes: Conjunctiva Clear, EOM Intact HENT: Yes: Atraumatic, Normocephalic Neck: Yes: Supple, Trachea Midline Cardiovascular: Yes: Regular Rate and Rhythm Respiratory: Yes: Regular, CTA Bilaterally Gastrointestinal: Yes: Normal Bowel Sounds, Soft, Abdomen, Obese ...Rectal Exam: Yes: Deferred Genitourinary: Yes: WNL Breast(s): Yes: WNL Musculoskeletal: Yes: WNL Extremities: Yes: WNL Edema: No Peripheral Pulses WNL: Yes Integumentary: Yes: WNL Neurological: Yes: WNL ...Motor Strength: WNL Psychiatric: Yes: WNL Labs: CBC, BMP 11/08/19 11:19 10/26/19 07:13 INR, PTT INR 3.63 (0.83-1.09) H 11/11/19 06:10 - ....Imaging Other: Report Reviewed (lab data reviewed) Problem List - Problems (1) Obesity Code(s): E66.9 - OBESITY, UNSPECIFIED (2) Leg pain, right Code(s): M79.604 - PAIN IN RIGHT LEG (3) COVID-19 Code(s): U07.1 - COVID POSITIVE (4) Influenza-like illness Code(s): J11.1 - FLU DUE TO UNIDENTIFIED INFLUENZA VIRUS W OTH RESP MANIFEST (5) Pulmonary embolism Code(s): I26.99 - OTHER PULMONARY EMBOLISM WITHOUT ACUTE COR PULMONALE (6) Shortness of breath Code(s): R06.02 - SHORTNESS OF BREATH (7) Deep vein thrombosis (DVT) of popliteal vein of right lower extremity Code(s): I82.431 - ACUTE EMBOLISM AND THROMBOSIS OF RIGHT POPLITEAL VEIN (8) Deep vein thrombosis (DVT) of femoral vein of right lower extremity Code(s): I82.411 - ACUTE EMBOLISM AND THROMBOSIS OF RIGHT FEMORAL VEIN (9) GERD (gastroesophageal reflux disease) Code(s): K21.9 - GASTRO-ESOPHAGEAL REFLUX DISEASE WITHOUT ESOPHAGITIS (10) H/O gastric bypass Code(s): Z98.84 - BARIATRIC SURGERY STATUS (11) Open wound of left lower leg Code(s): S81.802A - UNSPECIFIED OPEN WOUND, LEFT LOWER LEG, INITIAL ENCOUNTER Assessment/Plan Assessment/plan: acute pain and edema of the right lower extremity, acute DVT of the right femoral and popliteal veins, Covid 19 infection in August, pulmonary embolism, s/p gastric bypass, GERD, anemia, obesity; adjusting warfarin dosage, today's INR 3.63, no coumadin for today, topical Bacitracin ointment for open wound of the left lower leg.
[2019-11-11] MEDS: BACITRACIN 15 GM TUBE TOPICAL OINTMENT TP SCH ×2 (09:17→21:44)
[2019-11-11] MEDS: POLYETHYLENE GLYCOL 3350 119 GM BTL PO PRN ×2 (09:17→21:44)
[2019-11-11] MEDS: ACETAMINOPHEN 325 MG TABLET (FP) PO PRN ×2 (12:00→21:43)
--- NOTE | 2019-11-11 19:54 | CON.CARD ---
Consult Consult Specialty:: Cardiology - History of Present Illness History of Present Illness: This 59 yr old female with PMH of pulmonary embolism, obesity, and s/p gastric bypass, anemia, GERD, admitted via ER with an acute pain and edema of the right lower leg since last . Positive for Covid in August 2019. Patient was on Eliquis 5mg po bid. Ultrasound revealed DVT in right f emoral vein and right popliteal vein. - History Source History Provided By: Patient, Medical Record - Past Medical History [employer]AURANT GREETER: No: Alzheimer's, CVA, Dementia, Migraine, Multiple Sclerosis, Peripheral Neuropathy, Parkinson's, Seizure, Syncope, TIA, Vertigo, Other Cardio/Vascular: No: AFIB, Aneurysm, Aortic Insufficiency, Aortic Stenosis, CAD, CHF, Deep Vein Thrombosis, HTN, Hyperlipdemia, MD, Mitral Insufficiency, Mitral Stenosis, Murmur, Pulmonary Hypertension, Other Pulmonary: Yes: Pulmonary Embolus Gastrointestinal: Yes: GERD Hepatobiliary: No: Cirrhosis, Cholelithiasis, Cholecystitis, Choledocholithiasis, Hepatitis A, Hepatitis B, Hepatitis C, Other Renal/: No: Renal Failure, Renal Inusuff, BPH, Cancer, Hematuria, Hemodialysis, Neurogenic Bladder, Renal Calculi, UTI, Other ...: No Infectious Disease: No: AIDS, C-Diff, Herpes Zoster, HIV, MRSA, STD's, Tuberculosis, VREF, Other Psych: No: Addictions, Anxiety, Bipolar, Depression, Panic, Psychosis, Schizophrenia, Other Musculoskeletal: No: Bursitis, Chronic low back pain, Hemiparesis, Hemiplegia, Osteoarthritis, Paraplegia, Other Rheumatology: No: Fibromyalgia, Gout, Lupus, Rheumatoid Arthritis, Sarcoidosis, Vasculitis, Other ENT: No: Allergic Rhinitis, Sinusitis, Other Endocrine: No: Richmond's Disease, Montrose's Disease, Diabetes Insipidus, Diabetes Mellitus, Hyperparathyroidism, Hyperthyroidism, Hypothyroidism, Osteopenia, SIADH, Other Dermatology: No: Basal Cell, Cellulitis, Eczema, Melanoma, Psoriasis, Squamous Cell, Other - Past Surgical History Past Surgical History: Yes: Bariatric Surgery - Alcohol/Substance Use Hx Alcohol Use: No - Smoking History Smoking history: Never smoked Have you smoked in the past 12 months: No Aproximately how many cigarettes per day: 0 Home Medications - Allergies Allergies/Adverse Reactions: Allergies Allergy/AdvReac Type Severity Reaction Status Date / Time codeine [Codeine] Allergy Verified 10/25/19 16:09 erythromycin base Allergy Verified 10/25/19 16:09 [Erythromycin Base] - Home Medications Home Medications: Ambulatory Orders Apixaban [Eliquis] 5 mg PO BID #60 tablet 09/22/19 Review of Systems - Review of Systems Constitutional: reports: No Symptoms Eyes: reports: No Symptoms HENT: reports: No Symptoms Neck: reports: No Symptoms Cardiovascular: reports: No Symptoms Gastrointestinal: reports: No Symptoms Genitourinary: reports: No Symptoms Breasts: reports: No Symptoms Reported Musculoskeletal: reports: No Symptoms Integumentary: reports: No Symptoms Neurological: reports: No Symptoms Endocrine: reports: No Symptoms Hematology/Lymphatic: reports: No Symptoms Psychiatric: reports: No Symptoms Vital Signs: Vital Signs Temperature 97.9 F 11/11/19 18:00 Pulse Rate 75 11/11/19 18:00 Respiratory Rate 18 11/11/19 18:00 Blood Pressure 116/74 11/11/19 18:00 O2 Sat by Pulse Oximetry (%) 99 11/11/19 09:37 Constitutional: Yes: Well Nourished, No Distress, Calm Eyes: Yes: WNL, Conjunctiva Clear, EOM Intact HENT: Yes: WNL, Atraumatic, Normocephalic Neck: Yes: WNL, Supple, Trachea Midline Respiratory: Yes: WNL, Regular, CTA Bilaterally Gastrointestinal: Yes: WNL, Normal Bowel Sounds Renal/: Yes: WNL Cardiovascular: Yes: WNL, Regular Rate and Rhythm Musculoskeletal: Yes: WNL Extremities: Yes: WNL Integumentary: Yes: WNL Neurological: Yes: WNL, Alert, Oriented ...Motor Strength: WNL Psychiatric: Yes: WNL, Alert, Oriented - Other Data Labs, Other Data: CBC, BMP 11/08/19 11:19 10/26/19 07:13 INR, PTT INR 3.63 (0.83-1.09) H 11/11/19 06:10 Imaging - Results Chest X-ray: Image Reviewed (CM no i/e) EKG: Image Reviewed (sr rep apcs) Problem List - Problems (1) Deep vein thrombosis (DVT) of femoral vein of right lower extremity Code(s): I82.411 - ACUTE EMBOLISM AND THROMBOSIS OF RIGHT FEMORAL VEIN (2) Deep vein thrombosis (DVT) of popliteal vein of right lower extremity Code(s): I82.431 - ACUTE EMBOLISM AND THROMBOSIS OF RIGHT POPLITEAL VEIN (3) GERD (gastroesophageal reflux disease) Code(s): K21.9 - GASTRO-ESOPHAGEAL REFLUX DISEASE WITHOUT ESOPHAGITIS (4) H/O gastric bypass Code(s): Z98.84 - BARIATRIC SURGERY STATUS (5) Leg pain, right Code(s): M79.604 - PAIN IN RIGHT LEG (6) Obesity Code(s): E66.9 - OBESITY, UNSPECIFIED (7) Open wound of left lower leg Code(s): S81.802A - UNSPECIFIED OPEN WOUND, LEFT LOWER LEG, INITIAL ENCOUNTER (8) Ankle sprain Code(s): S93.409A - SPRAIN OF UNSP LIGAMENT OF UNSPECIFIED ANKLE, INIT ENCNTR (9) Bronchitis Code(s): J40 - BRONCHITIS, NOT SPECIFIED ACUTE OR CHRONIC (10) COVID-19 Code(s): U07.1 - COVID POSITIVE (11) Influenza-like illness Code(s): J11.1 - FLU DUE TO UNIDENTIFIED INFLUENZA VIRUS W OTH RESP MANIFEST (12) Medial malleolar fracture Code(s): S82.53XA - DISP FX OF MEDIAL MALLEOLUS OF UNSP TIBIA, INIT FOR CLOS FX Qualifiers: Encounter type: initial encounter Fracture type: closed Fracture alignment: nondisplaced Laterality: right Qualified Code(s): S82.54XA - Nondisplaced fracture of medial malleolus of right tibia, initial encounter for closed fracture (13) Pulmonary embolism Code(s): I26.99 - OTHER PULMONARY EMBOLISM WITHOUT ACUTE COR PULMONALE (14) Shortness of breath Code(s): R06.02 - SHORTNESS OF BREATH Assessment/Plan Pt. is a 59 y.o. F w/ PMHx. Obesity, Hx. of Gastric Byass of PE/DVT(while on Eliquis) after recent infection with COVID-19 (in August). #RLE DVT Eliquis switched to Warfarin INR at 4.14 monitor INR F/u EKG ECHO to evaluate RV
--- NOTE | 2019-11-12 06:20 | PN.HO ---
Progress Note (short form) - Note Progress Note: Coumadin being titrated LEukopenia /mild neutropeniz --- check flow/FISH/cytogenetics
[2019-11-12 08:04] LABS: INR 2.02 (0.83-1.09)
[2019-11-12 08:17] LABS: EOS % 0.6 % (0-4.5); HEMOGLOBIN 11.6 GM/dL (10.7-15.3); LYMPH % 58.6 % (8-40); MCH 28.7 pg (25.7-33.7); MCHC 32.1 g/dl (32.0-36.0); MEAN CELL VOLUME 89.2 fl (80-96); MEAN PLT VOLUME 8.5 fl (7.5-11.1); MONO % 8.3 % (3.8-10.2); NEUT % 31.5 % (42.8-82.8); PLATELET COUNT 347 K/MM3 (134-434); RBC 4.04 M/mm3 (3.60-5.2); RDW 14.4 % (11.6-15.6); WHITE BLOOD COUNT 2.9 K/mm3 (4.0-10.0)
[2019-11-12 08:40] LABS: ALBUMIN 3.1 g/dl (3.4-5.0); ALK PHOS 110 U/L (45-117); ANION GAP 5 MMOL/L (8-16); BILIRUBIN,TOTAL 0.3 mg/dL (0.2-1); BLOOD UREA NITROGEN 13.4 mg/dL (7-18); CALCIUM 9.1 mg/dL (8.5-10.1); CHLORIDE 108 mmol/L (98-107); CHOLESTEROL 178 mg/dL (50-200); CO2 29 mmol/L (21-32); CREATININE 0.7 mg/dL (0.55-1.3); GLUCOSE,RANDOM 114 mg/dL (74-106); HDL CHOLESTEROL 60 mg/dL (40-60); LDL CHOLESTEROL (ONLY SJRH) 103 mg/dL (5-100); POTASSIUM 4.9 mmol/L (3.5-5.1); SGOT/AST 19 U/L (15-37); SGPT/ALT 39 U/L (13-61); SODIUM 142 mmol/L (136-145); TOT PROT 7.4 g/dl (6.4-8.2); TRIGLYCERIDES 60 mg/dL (0-150)
--- NOTE | 2019-11-12 08:46 | PN ---
Progress Note, Physician Chief Complaint: Patient seen and examined at the bedside, no acute events from last night, no signs of bleeding. History of Present Illness: This 59 yr old female with PMH of Covid 19 infection in August, pulmonary embolism, obesity, s/p gastric bypass, anemia admitted via ER with an acute pain and edema of the right lower extremity, and an acute DVT of the right femoral and popliteal veins. - Current Medication List Current Medications: Active Medications Acetaminophen (Tylenol -) 650 mg PO Q4H PRN PRN Reason: MODERATE PAIN Last Admin: 11/11/19 21:43 Dose: 650 mg Documented by: Bacitracin (Bacitracin -) 1 applic TP BID ALEX Last Admin: 11/11/19 21:44 Dose: 1 applic Documented by: Polyethylene Glycol (Miralax (For Daily Use) -) 17 gm PO DAILY PRN PRN Reason: CONSTIPATION Last Admin: 11/11/19 21:44 Dose: 17 grams Documented by: - Objective Vital Signs: Vital Signs Temperature 97.9 F 11/12/19 06:30 Pulse Rate 98 H 11/12/19 06:30 Respiratory Rate 11/12/19 06:30 Blood Pressure 117/92 11/12/19 06:30 O2 Sat by Pulse Oximetry (%) 100 11/11/19 22:01 Constitutional: Yes: Well Nourished, No Distress, Calm Eyes: Yes: Conjunctiva Clear, EOM Intact HENT: Yes: Atraumatic, Normocephalic Neck: Yes: Supple, Trachea Midline Cardiovascular: Yes: Regular Rate and Rhythm Respiratory: Yes: Regular, CTA Bilaterally Gastrointestinal: Yes: Normal Bowel Sounds, Soft, Abdomen, Obese ...Rectal Exam: Yes: Deferred Genitourinary: Yes: WNL Breast(s): Yes: WNL Musculoskeletal: Yes: WNL Extremities: Yes: Other (DVT of right femoral and popliteal veinds) Edema: Yes Edema: RLE: 1+ Peripheral Pulses WNL: Yes Integumentary: Yes: WNL Neurological: Yes: WNL ...Motor Strength: WNL Psychiatric: Yes: WNL Labs: CBC, BMP 11/12/19 07:18 11/12/19 07:18 INR, PTT INR 2.02 (0.83-1.09) H 11/12/19 07:18 - ....Imaging Other: Report Reviewed (lab data reviewed) Problem List - Problems (1) Obesity Code(s): E66.9 - OBESITY, UNSPECIFIED (2) Leg pain, right Code(s): M79.604 - PAIN IN RIGHT LEG (3) COVID-19 Code(s): U07.1 - COVID POSITIVE (4) Influenza-like illness Code(s): J11.1 - FLU DUE TO UNIDENTIFIED INFLUENZA VIRUS W OTH RESP MANIFEST (5) Pulmonary embolism Code(s): I26.99 - OTHER PULMONARY EMBOLISM WITHOUT ACUTE COR PULMONALE (6) Shortness of breath Code(s): R06.02 - SHORTNESS OF BREATH (7) Deep vein thrombosis (DVT) of popliteal vein of right lower extremity Code(s): I82.431 - ACUTE EMBOLISM AND THROMBOSIS OF RIGHT POPLITEAL VEIN (8) Deep vein thrombosis (DVT) of femoral vein of right lower extremity Code(s): I82.411 - ACUTE EMBOLISM AND THROMBOSIS OF RIGHT FEMORAL VEIN (9) GERD (gastroesophageal reflux disease) Code(s): K21.9 - GASTRO-ESOPHAGEAL REFLUX DISEASE WITHOUT ESOPHAGITIS (10) H/O gastric bypass Code(s): Z98.84 - BARIATRIC SURGERY STATUS (11) Open wound of left lower leg Code(s): S81.802A - UNSPECIFIED OPEN WOUND, LEFT LOWER LEG, INITIAL ENCOUNTER Assessment/Plan Assessment/plan: acute pain and edema of the right lower extremity, acute DVT of the right femoral and popliteal veins, Covid 19 infection in August, pulmonary embolism, obesity, s/p gastric bypass; Warfarin 10mg po today, today's INR is 2.02, adjusting dosage of warfarin, topical Bacitracin to open wound of the left lower leg daily.
[2019-11-12] MEDS: ACETAMINOPHEN 325 MG TABLET (FP) PO PRN (09:50)
[2019-11-12] MEDS: POLYETHYLENE GLYCOL 3350 119 GM BTL PO PRN ×2 (09:52→21:33)
[2019-11-12] MEDS: BACITRACIN 15 GM TUBE TOPICAL OINTMENT TP SCH ×2 (09:53→21:32)
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
[2019-11-12] MEDS ORDERED: WARFARIN NA 2 MG TABLET ONE (17:30)
[2019-11-12] MEDS ORDERED: WARFARIN NA 10 MG TABLET ONE (17:30)
[2019-11-12] MEDS: ATORVASTATIN CA 10 MG TABLET (FP) PO SCH ×3 (17:32→21:41)
[2019-11-12] MEDS: WARFARIN NA 10 MG, WARFARIN NA 2 MG PO SCH (17:32)
[2019-11-12] MEDS ORDERED: WARFARIN NA 10 MG TABLET PO SCH ×2 (18:00)
[2019-11-12] MEDS ORDERED: ATORVASTATIN CA 20 MG TABLET (FP) PO SCH (22:00)
[2019-11-13 08:26] LABS: INR 1.46 (0.83-1.09); PROTHROMBIN TIME (PATIENT) 17.3 SEC (9.7-13.0)
--- NOTE | 2019-11-13 08:29 | PN ---
Progress Note, Physician Chief Complaint: Patient seen and examined at the bedside, no acute events from last night, no pain in the right leg. History of Present Illness: This 59 yr old female with PMH of Covid 19 infection in August, pulmonary embolism, obesity, GERD, s/p gastric bypass admitted via ER with an acute pain and edema of the right lower extremity and an acute DVT of the right femoral and popliteal veins. - Current Medication List Current Medications: Active Medications Acetaminophen (Tylenol -) 650 mg PO Q4H PRN PRN Reason: MODERATE PAIN Last Admin: 11/12/19 09:50 Dose: 650 mg Documented by: Atorvastatin Calcium (Lipitor -) 10 mg PO HS [facility] Last Admin: 11/12/19 21:41 Dose: Not Given Documented by: Bacitracin (Bacitracin -) 1 applic TP BID [facility] Last Admin: 11/12/19 21:32 Dose: 1 applic Documented by: Polyethylene Glycol (Miralax (For Daily Use) -) 17 gm PO DAILY PRN PRN Reason: CONSTIPATION Last Admin: 11/12/19 21:33 Dose: 17 grams Documented by: Warfarin Sodium 10 mg/ (Warfarin Sodium 2 mg) 12 mg PO DAILY@1800 [facility] Last Admin: 11/12/19 17:32 Dose: 12 mg Documented by: - Objective Vital Signs: Vital Signs Temperature 98.7 F 11/13/19 06:35 Pulse Rate 64 11/13/19 06:35 Respiratory Rate 20 11/13/19 06:35 Blood Pressure 97/56 L 11/13/19 06:35 O2 Sat by Pulse Oximetry (%) 100 11/13/19 06:35 Constitutional: Yes: Well Nourished, No Distress, Anxious (does not wish to have any more lab tests done other than CBC and INR) Eyes: Yes: Conjunctiva Clear, EOM Intact HENT: Yes: Atraumatic, Normocephalic Neck: Yes: Supple, Trachea Midline Cardiovascular: Yes: Regular Rate and Rhythm Respiratory: Yes: Regular, CTA Bilaterally Gastrointestinal: Yes: Normal Bowel Sounds, Soft ...Rectal Exam: Yes: Deferred Genitourinary: Yes: WNL Breast(s): Yes: WNL Musculoskeletal: Yes: WNL Extremities: Yes: WNL Edema: Yes Edema: RLE: 1+ Peripheral Pulses WNL: Yes Integumentary: Yes: Skin Tear (left lower leg) Neurological: Yes: WNL ...Motor Strength: WNL Psychiatric: Yes: WNL Labs: CBC, BMP 11/12/19 07:18 11/12/19 07:18 INR, PTT INR 1.46 (0.83-1.09) H 11/13/19 07:30 - ....Imaging Other: Report Reviewed (lab data reviewed) Problem List - Problems (1) Obesity Code(s): E66.9 - OBESITY, UNSPECIFIED (2) Leg pain, right Code(s): M79.604 - PAIN IN RIGHT LEG (3) COVID-19 Code(s): U07.1 - COVID POSITIVE (4) Influenza-like illness Code(s): J11.1 - FLU DUE TO UNIDENTIFIED INFLUENZA VIRUS W OTH RESP MANIFEST (5) Pulmonary embolism Code(s): I26.99 - OTHER PULMONARY EMBOLISM WITHOUT ACUTE COR PULMONALE (6) Shortness of breath Code(s): R06.02 - SHORTNESS OF BREATH (7) Deep vein thrombosis (DVT) of popliteal vein of right lower extremity Code(s): I82.431 - ACUTE EMBOLISM AND THROMBOSIS OF RIGHT POPLITEAL VEIN (8) Deep vein thrombosis (DVT) of femoral vein of right lower extremity Code(s): I82.411 - ACUTE EMBOLISM AND THROMBOSIS OF RIGHT FEMORAL VEIN (9) GERD (gastroesophageal reflux disease) Code(s): K21.9 - GASTRO-ESOPHAGEAL REFLUX DISEASE WITHOUT ESOPHAGITIS (10) H/O gastric bypass Code(s): Z98.84 - BARIATRIC SURGERY STATUS (11) Open wound of left lower leg Code(s): S81.802A - UNSPECIFIED OPEN WOUND, LEFT LOWER LEG, INITIAL ENCOUNTER Assessment/Plan Assessment/plan: acute pain and edema of the right lower leg, acute DVT of the right femoral and popliteal veins, Covid 19 infection in August, pulmonary embolism, obesity, s/p gastric bypass, GERD; Warfarin 12mg po today, today's INR 1.46, adjusting dose of warfarin, topical Bacitracin ointment to open wound of the left lower leg.
[2019-11-13] MEDS: ATORVASTATIN CA 10 MG TABLET (FP) PO SCH (09:59)
[2019-11-13] MEDS: BACITRACIN 15 GM TUBE TOPICAL OINTMENT TP SCH ×2 (09:59→21:05)
--- NOTE | 2019-11-13 10:07 | ECHO ---
Version: 1 Name: YESENIA LYLES Exam: Adult Echocardiogram Study Date: 11/13/2019, 8:59 AM Age: 59 Years MMode/2D Measurements & Calculations IVSd: 1.07 cm LVIDs: 3.3 cm LVIDd: 4.9 cm LVPWd: 1.01 cm LAV (MOD-bp): 102.0 ml ACS: 1.99 cm Ao root diam: 3.2 cm LVOT diam: 1.97 cm LA dimension: 4.8 cm Doppler Measurements & Calculations MV E max virgilio: 65.6 cm/sec Med E/e': 9.2 MV A max virgilio: 73.5 cm/sec Med Peak E' Virgilio: 7.1 cm/sec MV E/A: 0.89 Lat E/e': 6.5 Lat Peak E' Virgilio: 10.1 cm/sec Ao max P.7 mmHg NADIA(I,D): 3.3 cm Ao mean P.7 mmHg LV V1 mean: 71.8 cm/sec Ao V2 max: 108.6 cm/sec LV V1 mean P.48 mmHg Procedure TDS due to body habitus. Left Ventricle The left ventricular size, thickness and function are normal. The transmitral spectral Doppler flow pattern is suggestive of impaired LV relaxation. Right Ventricle The right ventricle is normal in size and function. Atria The left atrium is moderately dilated. Mitral Valve The mitral valve is normal in structure and function. There is no mitral valve stenosis. There is tr martín mitral regurgitation. Tricuspid Valve The tricuspid valve is not well visualized, but is grossly normal. There is Trace to mild tricuspid regurgitation. There was insufficient TR detected to calculate RV systolic pressure. Aortic Valve There is mild aortic sclerosis.;. No hemodynamically significant valvular aortic stenosis. No aortic regurgitation is present. Pulmonic Valve The pulmonic valve is not well seen, but is grossly normal. There is no pulmonic valvular stenosis. Great Vessels The aortic root is normal size. Pericardium/Pleura There is no pericardial effusion. Summary Statements The left ventricular size, thickness and function are normal The transmitral spectral Doppler flow pattern is suggestive of impaired LV relaxation. The right ventricle is normal in size and function. The left atrium is moderately dilated. There is trace mitral regurgitation. There is Trace to mild tricuspid regurgitation. There is mild aortic sclerosis.; There is no pericardial effusion. There was insufficient TR detected to calculate RV systolic pressure. MD Lozada *Jkay 11/13/2019, 10:06 AM Ordering Physician: Arya Wilhelm Referring Physician: ARYA WILHELM Performed By: Tiny Vargas
[2019-11-13] MEDS: ACETAMINOPHEN 325 MG TABLET (FP) PO PRN ×2 (11:40→22:06)
--- NOTE | 2019-11-13 14:33 | PN ---
Physical Exam: SUBJECTIVE: Patient refused to be seen today stating that she does not want to see our service anymore. OBJECTIVE: Vital Signs Period Temp Pulse Resp BP Sys/Paiz Pulse Ox Last 24 Hr 98.4 F-98.7 F 64-87 18-20 97-134/51-74 99-100 refused Laboratory Results - last 24 hr 11/13/19 07:30 PT with INR 17.30 H INR 1.46 H Active Medications Generic Name Dose Route Start Last Admin Trade Name Freq PRN Reason Stop Dose Admin Acetaminophen 650 mg 10/26/19 09:07 11/13/19 11:40 Tylenol - PO 650 mg Q4H PRN Administration MODERATE PAIN Atorvastatin Calcium 10 mg 11/13/19 10:00 11/13/19 09:59 Lipitor - PO 10 mg DAILY ALEX Administration Bacitracin 1 applic 11/07/19 10:00 11/13/19 09:59 Bacitracin - TP 1 applic BID ALEX Administration Polyethylene Glycol 17 gm 10/28/19 09:30 11/12/19 21:33 Miralax (For Daily Use) - PO 17 grams DAILY PRN Administration CONSTIPATION Warfarin Sodium 10 mg/ 12 mg 11/12/19 18:00 11/12/19 17:32 Warfarin Sodium 2 mg PO 12 mg DAILY@1800 ALEX Administration ASSESSMENT/PLAN: Pt. is a 59 y.o. F w/ PMHx. Obesity, Hx. of Gastric Byass of PE/DVT(while on Eliquis) after recent infection with COVID-19 (in August). #RLE DVT Warfarin dereased to 12 mg Daily, holding today's dose for INR at 4.14 monitor INR counseled Pt. about consistency of diet Higher doses of Warfarin are associated with obesity. Pt. is morbidly obese and there fore has increased colon with increased Vitamin K production (clearance), increased volume of distribution necessitating increased amounts of Warfarin. Cannot rule out genetic etiology of VKORC1 and CYP2C9 variants which studies have shown to be the largest cause of variation. There is no upper limit of warfarin dosing. Lovenox 1mg/kg BID dosing as an alternative to Warfarin however as this would require anti- Xa monitoring, would be more difficult to monitor. It is reasonable to perform malignancy work up with CT A/P with contrast and age appropriate screening of colonoscopy, mammogram and PAP Smear as outpatient. Visit type - Emergency Visit Emergency Visit: Yes ED Registration Date: 10/25/19 Care time: The patient presented to the Emergency Department on the above date and was hospitalized for further evaluation of their emergent condition. - New Patient This patient is new to me today: No - Critical Care Critical Care patient: No - Discharge Referral Referred to [facility] No ATTENDING PHYSICIAN STATEMENT I saw and evaluated the patient. I reviewed the resident's note and discussed the case with the resident. I agree with the resident's findings and plan as documented. SUBJECTIVE: OBJECTIVE: ASSESSMENT AND PLAN:
--- NOTE | 2019-11-13 15:41 | PN ---
Progress Note, Physician History of Present Illness: This 59 yr old female with PMH of pulmonary embolism, obesity, and s/p gastric bypass, anemia, GERD, admitted via ER with an acute pain and edema of the right lower leg since last . Positive for Covid in August 2019. Patient was on Eliquis 5mg po bid. Ultrasound revealed DVT in right femoral vein and right popliteal vein. - Current Medication List Current Medications: Active Medications Acetaminophen (Tylenol -) 650 mg PO Q4H PRN PRN Reason: MODERATE PAIN Last Admin: 11/13/19 11:40 Dose: 650 mg Documented by: Atorvastatin Calcium (Lipitor -) 10 mg PO DAILY [facility] Last Admin: 11/13/19 09:59 Dose: 10 mg Documented by: Bacitracin (Bacitracin -) 1 applic TP BID [facility] Last Admin: 11/13/19 09:59 Dose: 1 applic Documented by: Polyethylene Glycol (Miralax (For Daily Use) -) 17 gm PO DAILY PRN PRN Reason: CONSTIPATION Last Admin: 11/12/19 21:33 Dose: 17 grams Documented by: Warfarin Sodium 10 mg/ (Warfarin Sodium 2 mg) 12 mg PO DAILY@1800 [facility] Last Admin: 11/12/19 17:32 Dose: 12 mg Documented by: - Objective Vital Signs: Vital Signs Temperature 98.5 F 11/13/19 10:02 Pulse Rate 72 11/13/19 10:02 Respiratory Rate 18 11/13/19 10:02 Blood Pressure 134/73 11/13/19 10:02 O2 Sat by Pulse Oximetry (%) 100 11/13/19 06:35 Eyes: Yes: WNL, Conjunctiva Clear, EOM Intact HENT: Yes: WNL, Atraumatic, Normocephalic Neck: Yes: WNL, Supple, Trachea Midline Cardiovascular: Yes: WNL, Regular Rate and Rhythm Respiratory: Yes: WNL, Regular, CTA Bilaterally Gastrointestinal: Yes: WNL, Normal Bowel Sounds Genitourinary: Yes: WNL Musculoskeletal: Yes: WNL Extremities: Yes: WNL Edema: No Integumentary: Yes: WNL Neurological: Yes: WNL, Alert, Oriented ...Motor Strength: WNL Psychiatric: Yes: WNL Labs: CBC, BMP 11/12/19 07:18 11/12/19 07:18 INR, PTT INR 1.46 (0.83-1.09) H 11/13/19 07:30 Problem List - Problems (1) Deep vein thrombosis (DVT) of femoral vein of right lower extremity Code(s): I82.411 - ACUTE EMBOLISM AND THROMBOSIS OF RIGHT FEMORAL VEIN (2) Deep vein thrombosis (DVT) of popliteal vein of right lower extremity Code(s): I82.431 - ACUTE EMBOLISM AND THROMBOSIS OF RIGHT POPLITEAL VEIN (3) GERD (gastroesophageal reflux disease) Code(s): K21.9 - GASTRO-ESOPHAGEAL REFLUX DISEASE WITHOUT ESOPHAGITIS (4) H/O gastric bypass Code(s): Z98.84 - BARIATRIC SURGERY STATUS (5) Leg pain, right Code(s): M79.604 - PAIN IN RIGHT LEG (6) Obesity Code(s): E66.9 - OBESITY, UNSPECIFIED (7) Open wound of left lower leg Code(s): S81.802A - UNSPECIFIED OPEN WOUND, LEFT LOWER LEG, INITIAL ENCOUNTER (8) Ankle sprain Code(s): S93.409A - SPRAIN OF UNSP LIGAMENT OF UNSPECIFIED ANKLE, INIT ENCNTR (9) Bronchitis Code(s): J40 - BRONCHITIS, NOT SPECIFIED ACUTE OR CHRONIC (10) COVID-19 Code(s): U07.1 - COVID POSITIVE (11) Influenza-like illness Code(s): J11.1 - FLU DUE TO UNIDENTIFIED INFLUENZA VIRUS W OTH RESP MANIFEST (12) Medial malleolar fracture Code(s): S82.53XA - DISP FX OF MEDIAL MALLEOLUS OF UNSP TIBIA, INIT FOR CLOS FX Qualifiers: Encounter type: initial encounter Fracture type: closed Fracture alignment: nondisplaced Laterality: right Qualified Code(s): S82.54XA - Nondisplaced fracture of medial malleolus of right tibia, initial encounter for closed fracture (13) Pulmonary embolism Code(s): I26.99 - OTHER PULMONARY EMBOLISM WITHOUT ACUTE COR PULMONALE (14) Shortness of breath Code(s): R06.02 - SHORTNESS OF BREATH Assessment/Plan Pt. is a 59 y.o. woman w/ PMHx. Obesity, Hx. of Gastric Byass; PE/DVT(while on Eliquis) after recent infection with COVID-19 (in August). 09/15/19 CTA: bilateral PE, with probable right heart strain. 09/15/19 S/p thrombectomy of L&R main pulmonary arteries; overnight TPA infusion. 09/16/19: angiography: significant improvement in L&R pulmonary blood flow. Borderline DM. 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 + new RLE DVT Javed switched to Warfarin INR now 1.46 (keep 2-3).Consider bridging with Lovenox until INR above 2. d/w dr. Walton EKG: NSR; LVH; APCs. ECHO to evaluate RV (limited ECHO study on earlier admission for PE, and unable to assess RV; cardiomegaly on CXR). Add statin; keep LDL < 70 mg/dL with diet, exercise, and reevaluate need for medication in 3-6 months. [facility] is in the process of helping her acquire a home INR monitor. Pt has felt her health has been good (stated she follows Dr. Riley Powers; I contacted him, and found she last saw him 7 yrs ago; stress ECHO negative at that time). The importance of weight loss and dietary modification was discussed in detail. Pt plans to reduce weight to 250 lbs.
[2019-11-13] MEDS ORDERED: WARFARIN NA 10 MG TABLET ONE (17:07)
[2019-11-13] MEDS ORDERED: WARFARIN NA 2 MG TABLET ONE (17:07)
[2019-11-13] MEDS: WARFARIN NA 10 MG, WARFARIN NA 2 MG PO SCH (17:15)
--- NOTE | 2019-11-13 17:43 | PATH ---
Surgical Pathology Report Patient Name: YESENIA LYLES Med. Rec. #: [id number] /Age/Gender: 1960 (Age: 59) / F Account: [id number] Location: [facility] MED/SURG Taken: 11/12/2019 Received: 11/12/2019 Reported: 11/13/2019 Physicians: Raya Walton M.D. Specimen(s) Received PERIPHERAL BLOOD Clinical History Leukopenia, pancytopenia Rule out MDS, AML Final Diagnosis COMPREHENSIVE FLOW CYTOMETRY performed and interpreted at [facility], [place], [place] ([id number]) INTERPRETATION: Granulocytopenia with no discrete atypical immunophenotypic findings seen. Phenotype: Granulocytes are proportionally decreased but exhibit immunophenotypic evidence of full maturation with no detectable aberrant marker expression. Blasts are not increased. Lymphocytes are proportionally increased and include polyclonal B cells, NK cells and immunophenotypically normal CD4+ and CD8+ T cells. No evidence of a clonal lymphoid expansion. See [facility] report for additional details. Electronically Signed Shahana Angel M.D. Addendum Reported: 11/18/2019 Addendum Diagnosis MYELODYSPLASIA FISH PANEL performed and interpreted at [facility] in [place], [place] ([id number]) shows the following. INTERPRETATION: No evidence of deletion 5q or monosomy 5 is present. No evidence of deletion 7q or monosomy 7 is present. No evidence of trisomy 8 (+8) is present. No evidence of deletion 13q14.2 is present. No evidence of a rearrangement of 11q23. No evidence of a deletion of the p53 (17p13) locus. No evidence of deletion 20q12 is present. CYTOGENETIC KARYOTYPE ANALYSIS [facility] [place] ([id number]) TEST RESULTS: Tissue Culture Failure. DIAGNOSTIC INTERPRETATION: This unstimulated peripheral blood specimen did not produce any analyzable metaphase cells and, therefore, chromosome analysis is not possible. A bone marrow aspirate, when clinically appropriate, is recommended. See [facility] reports for details. Shahana Angel M.D. Gross Description Received are 2 green top tubes and 2 purple top tubes of blood which are sent to [facility]. /11/13/2019 [facility]/11/13/2019
[2019-11-13] MEDS ORDERED: ENOXAPARIN NA (PORCINE) 80 MG/0.8 ML DISP.SYRIN SQ SCH (19:00)
[2019-11-14 03:29] LABS: LDH 163 U/L (84-246)
[2019-11-14] MEDS ORDERED: PT OWN MED DRAWER 7, Y5N ONE ×3 (06:26→18:22)
[2019-11-14] MEDS: ENOXAPARIN 100 MG, ENOXAPARIN 30 MG SQ SCH ×2 (06:47→18:32)
--- NOTE | 2019-11-14 07:11 | PN ---
Teaching Attending Note Name of Resident: Syed Winters ATTENDING PHYSICIAN STATEMENT I saw and evaluated the patient. I reviewed the resident's note and discussed the case with the resident. I agree with the resident's findings and plan as documented. ASSESSMENT AND PLAN: Pt. is a 59 y.o. F w/ PMHx. Obesity, Hx. of Gastric Byass of PE/DVT 09/14 at the time of diagnosis with COVID-19 ( 09/14/19). s/p thrombolysis of PE Was discharged home that admission on eliquis 5 mg bid. Presented 10/24 with RLE pain and noted to have development of rt. distal femoral DVT in addition to polpliteal DVT while on eliquis. Bridged with lovenox to coumadin Hypercoagulable state of COVID provoked DVT/PE?? Progression of DVT on eliquis Given her BMI is requiing higher doses of coumadin. Continuing coumadin, titrating dose per INR closely discussed with patient PEr her dietary preferences she would want to condier lovenox 1mg/kg -- 130mg bid. Lovenox dosing in obesity could result in variable exposure and hence monitoring with antiXa levels is considered. USually checked 4 hrs. after lovenox dose Discussed these options in detail with patient -- patient at this time wants to proceed with lovnox alone if titration of coumadin becomes problematic. Sheis willing to try coumadin till early next week --if titration still problematic she would want to stop coumadin and proceed with lovenox. Will need age appropriate cancer screening. Discussed wt. loss Since DVT/PE may be provoked due to hypercoagulable state of COVID--? 3 -6 months of a/c. Reevaluate at that time period
[2019-11-14 07:43] LABS: BASO % 1.3 % (0-2.0); EOS % 0.7 % (0-4.5); HEMATOCRIT 35.9 % (32.4-45.2); HEMOGLOBIN 11.5 GM/dL (10.7-15.3); MCH 28.5 pg (25.7-33.7); MCHC 32.1 g/dl (32.0-36.0); MEAN CELL VOLUME 88.8 fl (80-96); MEAN PLT VOLUME 8.8 fl (7.5-11.1); MONO % 8.2 % (3.8-10.2); NEUT % 29.8 % (42.8-82.8); PLATELET COUNT 313 K/MM3 (134-434); RBC 4.04 M/mm3 (3.60-5.2); RDW 14.4 % (11.6-15.6); WHITE BLOOD COUNT 3.3 K/mm3 (4.0-10.0)
[2019-11-14 08:15] LABS: ALBUMIN 3.1 g/dl (3.4-5.0); BILIRUBIN,TOTAL 0.4 mg/dL (0.2-1); BLOOD UREA NITROGEN 13.2 mg/dL (7-18); CALCIUM 9.3 mg/dL (8.5-10.1); CREATININE 0.8 mg/dL (0.55-1.3); POTASSIUM 4.2 mmol/L (3.5-5.1); TOT PROT 7.3 g/dl (6.4-8.2)
[2019-11-14] MEDS: ATORVASTATIN CA 10 MG TABLET (FP) PO SCH (09:02)
[2019-11-14] MEDS: BACITRACIN 15 GM TUBE TOPICAL OINTMENT TP SCH ×2 (09:02→21:26)
[2019-11-14 09:08] LABS: INR 1.67 (0.83-1.09); PROTHROMBIN TIME (PATIENT) 19.8 SEC (9.7-13.0)
[2019-11-14 10:22] LABS: ERYTHROCYTE SEDIMENTATION RATE 38 mm/hr (0-30)
[2019-11-14] MEDS: POLYETHYLENE GLYCOL 3350 119 GM BTL PO PRN (10:28)
[2019-11-14] MEDS ORDERED: WARFARIN NA 10 MG TABLET PO SCH (12:03)
--- NOTE | 2019-11-14 12:06 | PN ---
Progress Note, Physician Chief Complaint: Patient seen and examined at the bedside, no acute events from last night, no pain in right leg. History of Present Illness: This 59 yr old female with PMH of Covid 19 infection in August, pulmonary embolism, obesity, s/p gastric bypass, GERD admitted via ER with an acute pain and edema of the right lower leg and an acute DVT of the right femoral and popliteal veins. - Current Medication List Current Medications: Active Medications Acetaminophen (Tylenol -) 650 mg PO Q4H PRN PRN Reason: MODERATE PAIN Last Admin: 11/13/19 22:06 Dose: 650 mg Documented by: Atorvastatin Calcium (Lipitor -) 10 mg PO DAILY [facility] Last Admin: 11/14/19 09:02 Dose: 10 mg Documented by: Bacitracin (Bacitracin -) 1 applic TP BID [facility] Last Admin: 11/14/19 09:02 Dose: 1 applic Documented by: Enoxaparin Sodium 100 mg/ (Enoxaparin Sodium 30 mg) 130 mg SQ Q12H [facility] Last Admin: 11/14/19 06:47 Dose: 130 mg Documented by: Polyethylene Glycol (Miralax (For Daily Use) -) 17 gm PO DAILY PRN PRN Reason: CONSTIPATION Last Admin: 11/14/19 10:28 Dose: 17 grams Documented by: Warfarin Sodium 10 mg/ (Warfarin Sodium 2 mg) 12 mg PO DAILY@1800 [facility] Last Admin: 11/13/19 17:15 Dose: 12 mg Documented by: - Objective Vital Signs: Vital Signs Temperature 98.5 F 11/14/19 09:00 Pulse Rate 71 11/14/19 09:00 Respiratory Rate 20 11/14/19 09:00 Blood Pressure 124/73 11/14/19 09:00 O2 Sat by Pulse Oximetry (%) 100 11/14/19 09:00 Constitutional: Yes: Well Nourished, No Distress, Calm Eyes: Yes: Conjunctiva Clear, EOM Intact HENT: Yes: Atraumatic, Normocephalic Neck: Yes: Supple, Trachea Midline Cardiovascular: Yes: Regular Rate and Rhythm Respiratory: Yes: Regular, CTA Bilaterally Gastrointestinal: Yes: Normal Bowel Sounds, Soft ...Rectal Exam: Yes: Deferred Genitourinary: Yes: WNL Breast(s): Yes: WNL Edema: Yes Edema: RLE: 1+ Peripheral Pulses WNL: Yes Integumentary: Yes: Skin Tear (left lower leg) Wound/Incision: Yes: Open to air Neurological: Yes: WNL ...Motor Strength: WNL Psychiatric: Yes: WNL Labs: CBC, BMP 11/14/19 07:10 11/14/19 07:10 INR, PTT INR 1.67 (0.83-1.09) H 11/14/19 07:10 - ....Imaging Other: Report Reviewed (lab data reviewed) Problem List - Problems (1) Obesity Code(s): E66.9 - OBESITY, UNSPECIFIED (2) Leg pain, right Code(s): M79.604 - PAIN IN RIGHT LEG (3) COVID-19 Code(s): U07.1 - COVID POSITIVE (4) Influenza-like illness Code(s): J11.1 - FLU DUE TO UNIDENTIFIED INFLUENZA VIRUS W OTH RESP MANIFEST (5) Pulmonary embolism Code(s): I26.99 - OTHER PULMONARY EMBOLISM WITHOUT ACUTE COR PULMONALE (6) Shortness of breath Code(s): R06.02 - SHORTNESS OF BREATH (7) Deep vein thrombosis (DVT) of popliteal vein of right lower extremity Code(s): I82.431 - ACUTE EMBOLISM AND THROMBOSIS OF RIGHT POPLITEAL VEIN (8) Deep vein thrombosis (DVT) of femoral vein of right lower extremity Code(s): I82.411 - ACUTE EMBOLISM AND THROMBOSIS OF RIGHT FEMORAL VEIN (9) GERD (gastroesophageal reflux disease) Code(s): K21.9 - GASTRO-ESOPHAGEAL REFLUX DISEASE WITHOUT ESOPHAGITIS (10) H/O gastric bypass Code(s): Z98.84 - BARIATRIC SURGERY STATUS (11) Open wound of left lower leg Code(s): S81.802A - UNSPECIFIED OPEN WOUND, LEFT LOWER LEG, INITIAL ENCOUNTER Assessment/Plan Assessment/plan: acute pain and edema of the right lower leg, acute DVT of the right femoral and popliteal veins, pulmonary embolism, Covid 19 infection in August, obesity, s/p gastric bypass, GERD; a/c with Lovenox and Coumadin, adjusting dose of coumadin, today's INR 1.67, Warfarin 8mg po today, patient wishes upon discharge from the hospital to be put on coumadin, topical Bacitracin ointment to open wound of the left lower leg.
[2019-11-14] MEDS ORDERED: WARFARIN NA 5 MG, WARFARIN NA 3 MG PO SCH (18:00)
[2019-11-14] MEDS ORDERED: WARFARIN NA 5 MG TABLET ONE (18:22)
[2019-11-14] MEDS ORDERED: WARFARIN NA 3 MG TABLET ONE (18:22)
[2019-11-15] MEDS: ENOXAPARIN 100 MG, ENOXAPARIN 30 MG SQ SCH (06:46)
--- NOTE | 2019-11-15 08:57 | PN ---
Progress Note, Physician Chief Complaint: Patient seen and examined at the bedside, no acute events from last night, afebrile, no pain in the right leg. History of Present Illness: This 59 yr old female with PMH of Covid 19 infection in August, pulmonary embolism, obesity, s/p gastric bypass, GERD admitted via ER with an acute pain and edema of the right lower extremity, and an acute DVT of right femoral and popliteal veins. - Current Medication List Current Medications: Active Medications Acetaminophen (Tylenol -) 650 mg PO Q4H PRN PRN Reason: MODERATE PAIN Last Admin: 11/13/19 22:06 Dose: 650 mg Documented by: Atorvastatin Calcium (Lipitor -) 10 mg PO DAILY [facility] Last Admin: 11/14/19 09:02 Dose: 10 mg Documented by: Bacitracin (Bacitracin -) 1 applic TP BID [facility] Last Admin: 11/14/19 21:26 Dose: 1 applic Documented by: Enoxaparin Sodium 100 mg/ (Enoxaparin Sodium 30 mg) 130 mg SQ Q12H [facility] Last Admin: 11/15/19 06:46 Dose: 130 mg Documented by: Polyethylene Glycol (Miralax (For Daily Use) -) 17 gm PO DAILY PRN PRN Reason: CONSTIPATION Last Admin: 11/14/19 10:28 Dose: 17 grams Documented by: Warfarin Sodium 5 mg/ Warfarin (Sodium 3 mg) 8 mg PO DAILY@1800 [facility] Last Admin: 11/14/19 18:25 Dose: 8 mg Documented by: - Objective Vital Signs: Vital Signs Temperature 97.8 F 11/14/19 22:00 Pulse Rate 61 11/15/19 06:00 Respiratory Rate 20 11/15/19 06:00 Blood Pressure 127/80 11/15/19 06:00 O2 Sat by Pulse Oximetry (%) 98 11/15/19 06:00 Constitutional: Yes: Well Nourished, No Distress, Calm Eyes: Yes: Conjunctiva Clear, EOM Intact HENT: Yes: Atraumatic, Normocephalic Neck: Yes: Supple, Trachea Midline Cardiovascular: Yes: Regular Rate and Rhythm Respiratory: Yes: Regular, CTA Bilaterally Gastrointestinal: Yes: Normal Bowel Sounds, Soft, Other (s/p gastric bypass) ...Rectal Exam: Yes: Deferred Genitourinary: Yes: WNL Breast(s): Yes: WNL Musculoskeletal: Yes: WNL Extremities: Yes: WNL Edema: No Peripheral Pulses WNL: Yes Integumentary: Yes: WNL Neurological: Yes: WNL ...Motor Strength: WNL Psychiatric: Yes: WNL Labs: CBC, BMP 11/14/19 07:10 11/14/19 07:10 INR, PTT INR 1.67 (0.83-1.09) H 11/14/19 07:10 - ....Imaging Other: Report Reviewed (lab data reviewed) Problem List - Problems (1) Obesity Code(s): E66.9 - OBESITY, UNSPECIFIED (2) Leg pain, right Code(s): M79.604 - PAIN IN RIGHT LEG (3) COVID-19 Code(s): U07.1 - COVID POSITIVE (4) Influenza-like illness Code(s): J11.1 - FLU DUE TO UNIDENTIFIED INFLUENZA VIRUS W OTH RESP MANIFEST (5) Pulmonary embolism Code(s): I26.99 - OTHER PULMONARY EMBOLISM WITHOUT ACUTE COR PULMONALE (6) Shortness of breath Code(s): R06.02 - SHORTNESS OF BREATH (7) Deep vein thrombosis (DVT) of popliteal vein of right lower extremity Code(s): I82.431 - ACUTE EMBOLISM AND THROMBOSIS OF RIGHT POPLITEAL VEIN (8) Deep vein thrombosis (DVT) of femoral vein of right lower extremity Code(s): I82.411 - ACUTE EMBOLISM AND THROMBOSIS OF RIGHT FEMORAL VEIN (9) GERD (gastroesophageal reflux disease) Code(s): K21.9 - GASTRO-ESOPHAGEAL REFLUX DISEASE WITHOUT ESOPHAGITIS (10) H/O gastric bypass Code(s): Z98.84 - BARIATRIC SURGERY STATUS (11) Open wound of left lower leg Code(s): S81.802A - UNSPECIFIED OPEN WOUND, LEFT LOWER LEG, INITIAL ENCOUNTER Assessment/Plan Assessment/plan: acute pain and edema of the right lower extremity, acute DVT of the right femoral and popliteal veins, Covid 19 infection in August, pulmonary embolism, s/p gastric bypass, GERD, leukopenia; a/c with Lovenox and warfarin, adjusting dose of warfarin.
[2019-11-15 09:16] LABS: INR 1.9 (0.83-1.09); PROTHROMBIN TIME (PATIENT) 22.6 SEC (9.7-13.0)
[2019-11-15] MEDS: BACITRACIN 15 GM TUBE TOPICAL OINTMENT TP SCH ×2 (09:20→21:01)
[2019-11-15] MEDS: POLYETHYLENE GLYCOL 3350 119 GM BTL PO PRN ×2 (09:20→21:01)
[2019-11-15] MEDS: ATORVASTATIN CA 10 MG TABLET (FP) PO SCH (09:20)
[2019-11-15] MEDS ORDERED: PT OWN MED DRAWER 7, Y5N ONE (17:11)
[2019-11-15] MEDS ORDERED: WARFARIN NA 10 MG TABLET PO SCH (18:00)
--- NOTE | 2019-11-16 05:42 | PN ---
Progress Note, Physician Chief Complaint: Patient seen and examined at the bedside, no acute events from last night, no pain in the right leg, no signs of bleeding. History of Present Illness: This 59 yr old female with PMH of Covid 19 infection in August, pulmonary embolism, s/p gastric bypass, GERD, obesity admitted via ER with an acute pain and edema of the right lower leg, and an acute DVT of the right femoral and popliteal veins. - Current Medication List Current Medications: Active Medications Acetaminophen (Tylenol -) 650 mg PO Q4H PRN PRN Reason: MODERATE PAIN Last Admin: 11/13/19 22:06 Dose: 650 mg Documented by: Atorvastatin Calcium (Lipitor -) 10 mg PO DAILY [facility] Last Admin: 11/15/19 09:20 Dose: 10 mg Documented by: Bacitracin (Bacitracin -) 1 applic TP BID [facility] Last Admin: 11/15/19 21:01 Dose: 1 applic Documented by: Polyethylene Glycol (Miralax (For Daily Use) -) 17 gm PO DAILY PRN PRN Reason: CONSTIPATION Last Admin: 11/15/19 21:01 Dose: 17 grams Documented by: Warfarin Sodium (Coumadin -) 10 mg PO DAILY@1800 [facility] Last Admin: 11/15/19 17:22 Dose: 10 mg Documented by: - Objective Vital Signs: Vital Signs Temperature 98.3 F 11/15/19 20:05 Pulse Rate 67 11/15/19 20:05 Respiratory Rate 20 11/15/19 20:05 Blood Pressure 120/71 11/15/19 20:05 O2 Sat by Pulse Oximetry (%) 98 11/15/19 21:00 Constitutional: Yes: Well Nourished, No Distress, Calm Eyes: Yes: Conjunctiva Clear, EOM Intact HENT: Yes: Atraumatic, Normocephalic Neck: Yes: Supple, Trachea Midline Cardiovascular: Yes: Regular Rate and Rhythm Respiratory: Yes: Regular, CTA Bilaterally Gastrointestinal: Yes: Normal Bowel Sounds, Soft ...Rectal Exam: Yes: Deferred Genitourinary: Yes: WNL Breast(s): Yes: WNL Musculoskeletal: Yes: WNL Extremities: Yes: WNL Edema: No Peripheral Pulses WNL: Yes Integumentary: Yes: WNL Neurological: Yes: WNL ...Motor Strength: WNL Psychiatric: Yes: WNL Labs: CBC, BMP 07/18/20 07:10 11/14/19 07:10 INR, PTT INR 1.90 (0.83-1.09) H 11/15/19 07:41 Problem List - Problems (1) Obesity Code(s): E66.9 - OBESITY, UNSPECIFIED (2) Leg pain, right Code(s): M79.604 - PAIN IN RIGHT LEG (3) COVID-19 Code(s): U07.1 - COVID POSITIVE (4) Influenza-like illness Code(s): J11.1 - FLU DUE TO UNIDENTIFIED INFLUENZA VIRUS W OTH RESP MANIFEST (5) Pulmonary embolism Code(s): I26.99 - OTHER PULMONARY EMBOLISM WITHOUT ACUTE COR PULMONALE (6) Shortness of breath Code(s): R06.02 - SHORTNESS OF BREATH (7) Deep vein thrombosis (DVT) of popliteal vein of right lower extremity Code(s): I82.431 - ACUTE EMBOLISM AND THROMBOSIS OF RIGHT POPLITEAL VEIN (8) Deep vein thrombosis (DVT) of femoral vein of right lower extremity Code(s): I82.411 - ACUTE EMBOLISM AND THROMBOSIS OF RIGHT FEMORAL VEIN (9) GERD (gastroesophageal reflux disease) Code(s): K21.9 - GASTRO-ESOPHAGEAL REFLUX DISEASE WITHOUT ESOPHAGITIS (10) H/O gastric bypass Code(s): Z98.84 - BARIATRIC SURGERY STATUS (11) Open wound of left lower leg Code(s): S81.802A - UNSPECIFIED OPEN WOUND, LEFT LOWER LEG, INITIAL ENCOUNTER (12) Leukopenia Code(s): D72.819 - DECREASED WHITE BLOOD CELL COUNT, UNSPECIFIED Assessment/Plan Assessment/plan: acute pain and edema of the right lower extremity, acute DVT of the right femoral and popliteal veins, acute leukopenia, covid 19 infection in August, pulmonary embolism, obesity, s/p gastric bypass, GERD; adjusting dosage of Warfarin, today's INR pending.
--- NOTE | 2019-11-16 09:19 | PN ---
Progress Note, Physician History of Present Illness: This 59 yr old female with PMH of pulmonary embolism, obesity, and s/p gastric bypass, anemia, GERD, admitted via ER with an acute pain and edema of the right lower leg since last . Positive for Covid in August 2019. Patient was on Eliquis 5mg po bid. Ultrasound revealed DVT in right femoral vein and right popliteal vein. - Current Medication List Current Medications: Active Medications Acetaminophen (Tylenol -) 650 mg PO Q4H PRN PRN Reason: MODERATE PAIN Last Admin: 11/13/19 22:06 Dose: 650 mg Documented by: Atorvastatin Calcium (Lipitor -) 10 mg PO DAILY [facility] Last Admin: 11/15/19 09:20 Dose: 10 mg Documented by: Bacitracin (Bacitracin -) 1 applic TP BID [facility] Last Admin: 11/15/19 21:01 Dose: 1 applic Documented by: Polyethylene Glycol (Miralax (For Daily Use) -) 17 gm PO DAILY PRN PRN Reason: CONSTIPATION Last Admin: 11/15/19 21:01 Dose: 17 grams Documented by: Warfarin Sodium (Coumadin -) 10 mg PO DAILY@1800 [facility] Last Admin: 11/15/19 17:22 Dose: 10 mg Documented by: - Objective Vital Signs: Vital Signs Temperature 98.1 F 11/16/19 06:50 Pulse Rate 79 11/16/19 06:50 Respiratory Rate 20 11/16/19 06:50 Blood Pressure 114/76 11/16/19 06:50 O2 Sat by Pulse Oximetry (%) 98 11/16/19 06:50 Eyes: Yes: WNL, Conjunctiva Clear, EOM Intact HENT: Yes: WNL, Atraumatic, Normocephalic Neck: Yes: WNL, Supple, Trachea Midline Cardiovascular: Yes: WNL, Regular Rate and Rhythm Respiratory: Yes: WNL, Regular, CTA Bilaterally Gastrointestinal: Yes: WNL, Normal Bowel Sounds Genitourinary: Yes: WNL Musculoskeletal: Yes: WNL Extremities: Yes: WNL Edema: No Integumentary: Yes: WNL Neurological: Yes: WNL, Alert, Oriented ...Motor Strength: WNL Psychiatric: Yes: WNL Labs: CBC, BMP 11/14/19 07:10 11/14/19 07:10 INR, PTT INR 1.90 (0.83-1.09) H 11/15/19 07:41 Problem List - Problems (1) Deep vein thrombosis (DVT) of femoral vein of right lower extremity Code(s): I82.411 - ACUTE EMBOLISM AND THROMBOSIS OF RIGHT FEMORAL VEIN (2) Deep vein thrombosis (DVT) of popliteal vein of right lower extremity Code(s): I82.431 - ACUTE EMBOLISM AND THROMBOSIS OF RIGHT POPLITEAL VEIN (3) GERD (gastroesophageal reflux disease) Code(s): K21.9 - GASTRO-ESOPHAGEAL REFLUX DISEASE WITHOUT ESOPHAGITIS (4) H/O gastric bypass Code(s): Z98.84 - BARIATRIC SURGERY STATUS (5) Leg pain, right Code(s): M79.604 - PAIN IN RIGHT LEG (6) Obesity Code(s): E66.9 - OBESITY, UNSPECIFIED (7) Open wound of left lower leg Code(s): S81.802A - UNSPECIFIED OPEN WOUND, LEFT LOWER LEG, INITIAL ENCOUNTER (8) Ankle sprain Code(s): S93.409A - SPRAIN OF UNSP LIGAMENT OF UNSPECIFIED ANKLE, INIT ENCNTR (9) Bronchitis Code(s): J40 - BRONCHITIS, NOT SPECIFIED ACUTE OR CHRONIC (10) COVID-19 Code(s): U07.1 - COVID POSITIVE (11) Influenza-like illness Code(s): J11.1 - FLU DUE TO UNIDENTIFIED INFLUENZA VIRUS W OTH RESP MANIFEST (12) Medial malleolar fracture Code(s): S82.53XA - DISP FX OF MEDIAL MALLEOLUS OF UNSP TIBIA, INIT FOR CLOS FX Qualifiers: Encounter type: initial encounter Fracture type: closed Fracture alignment: nondisplaced Laterality: right Qualified Code(s): S82.54XA - Nondisplaced fracture of medial malleolus of right tibia, initial encounter for closed fracture (13) Pulmonary embolism Code(s): I26.99 - OTHER PULMONARY EMBOLISM WITHOUT ACUTE COR PULMONALE (14) Shortness of breath Code(s): R06.02 - SHORTNESS OF BREATH Assessment/Plan Pt. is a 59 y.o. woman w/ PMHx. Obesity, Hx. of Gastric Byass; PE/DVT(while on Eliquis) after recent infection with COVID-19 (in August). 09/15/19 CTA: bilateral PE, with probable right heart strain. 09/15/19 S/p thrombectomy of L&R main pulmonary arteries; overnight TPA infusion. 09/16/19: angiography: significant improvement in L&R pulmonary blood flow. Borderline DM. 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 + new RLE DVT Javed switched to Warfarin INR now 1.46 (keep 2-3).Consider bridging with Lovenox until INR above 2. d/w dr. Walton EKG: NSR; LVH; APCs. ECHO to evaluate RV (limited ECHO study on earlier admission for PE, and unable to assess RV; cardiomegaly on CXR). Add statin; keep LDL < 70 mg/dL with diet, exercise, and reevaluate need for medication in 3-6 months. [facility] is in the process of helping her acquire a home INR monitor. Pt has felt her health has been good (stated she follows Dr. Riley Powers; I contacted him, and found she last saw him 7 yrs ago; stress ECHO negative at [facility] t time). The importance of weight loss and dietary modification was discussed in detail. Pt plans to reduce weight to 250 lbs.
[2019-11-16] MEDS ORDERED: PT OWN MED DRAWER 7, Y5N ONE (09:27)
[2019-11-16] MEDS: ATORVASTATIN CA 10 MG TABLET (FP) PO SCH (09:29)
[2019-11-16] MEDS: BACITRACIN 15 GM TUBE TOPICAL OINTMENT TP SCH (09:31)
[2019-11-16 13:41] LABS: INR 1.87 (0.83-1.09); PROTHROMBIN TIME (PATIENT) 22.2 SEC (9.7-13.0)
[2019-11-16] MEDS ORDERED: WARFARIN NA 10 MG TABLET PO SCH (14:45)
--- NOTE | 2019-11-16 14:52 | DS ---
Physical Examination Vital Signs: Vital Signs Temperature 98.1 F 11/16/19 06:50 Pulse Rate 79 11/16/19 06:50 Respiratory Rate 20 11/16/19 06:50 Blood Pressure 114/76 11/16/19 06:50 O2 Sat by Pulse Oximetry (%) 98 11/16/19 06:50 Constitutional: Yes: Well Nourished, No Distress, Calm Eyes: Yes: Conjunctiva Clear, EOM Intact HENT: Yes: Atraumatic, Normocephalic Neck: Yes: Supple, Trachea Midline Cardiovascular: Yes: Regular Rate and Rhythm Respiratory: Yes: Regular, CTA Bilaterally Gastrointestinal: Yes: Normal Bowel Sounds, Soft ...Rectal Exam: Yes: Deferred Renal/: Yes: WNL Breast(s): Yes: WNL Musculoskeletal: Yes: WNL Extremities: Yes: WNL Edema: No Peripheral Pulses WNL: Yes Integumentary: Yes: WNL Neurological: Yes: WNL ...Motor Strength: WNL Psychiatric: Yes: WNL Labs: CBC, BMP 11/14/19 07:10 11/14/19 07:10 Discharge Summary Problems reviewed: Yes Reason For Visit: COVID-19 PAIN OR RIGHT LOWER EXTREMITY Current Active Problems Deep vein thrombosis (DVT) of femoral vein of right lower extremity (Acute) Deep vein thrombosis (DVT) of popliteal vein of right lower extremity (Acute) GERD (gastroesophageal reflux disease) (Acute) H/O gastric bypass (Acute) Leg pain, right (Acute) Leukopenia (Acute) Obesity (Acute) Open wound of left lower leg (Acute) Condition: Improved - Instructions Diet, Activity, Other Instructions: Warfarin 2mg, 6 tabs po daily. INR daily for next 7 days. Activity as tolerated. Follow up with Dr. Foreman within one week. Total time spent over 30 minutes. Referrals: Yang Foreman [Primary Care Provider] - - Home Medications Comprehensive Discharge Medication List: Ambulatory Orders Acetaminophen [Tylenol .Regular Strength -] 650 mg PO Q4H PRN tablet 11/16/19 Atorvastatin Ca [Lipitor] 10 mg PO DAILY tablet 11/16/19 Warfarin Na [Coumadin -] 12 mg PO DAILY@1800 #180 tablet 11/16/19
[2019-11-16 15:52] VITALS: BP 110/73; PULSE 78; TEMP 98
[2019-11-16] MEDS ORDERED: WARFARIN NA 10 MG TABLET ONE (17:04)
[2019-11-16] MEDS ORDERED: WARFARIN NA 2 MG TABLET ONE (17:05)
[2019-11-16] MEDS ORDERED: WARFARIN NA 10 MG, WARFARIN NA 2 MG PO SCH (18:00)
== END 2019-11-16 17:40 | disposition home or self-care (01) | DRG 299 ==
LOC: JER 15:55 → JERBED 19:30 → J8W 10-26 00:37
PROVIDERS: ADMIT Internal Medicine; ATTEND Internal Medicine
PROC: 3E013GC Introduction of Other Therapeutic Substance into Subcutaneous Tissue, Percutaneous Approach (ICD-10-PCS; principal; 2019-10-25)
DX: I82.411 Acute embolism and thrombosis of right femoral vein (principal); I82.431 Acute embolism and thrombosis of right popliteal vein; I26.99 Other pulmonary embolism without acute cor pulmonale; Z98.84 Bariatric surgery status; R60.0 Localized edema; M79.604 Pain in right leg; D64.9 Anemia, unspecified; K21.9 Gastro-esophageal reflux disease without esophagitis; E66.01 Morbid (severe) obesity due to excess calories; Z68.38 Body mass index [BMI] 38.0-38.9, adult; R73.03 Prediabetes; D72.819 Decreased white blood cell count, unspecified; I51.7 Cardiomegaly; Z71.3 Dietary counseling and surveillance
CPT/HCPCS: 36415; 71045-TC-FY; 80053; 80061; 82272; 82607; 82746; 83036; 83615; 83721; 84443; 85025; 85379; 85610; 85651; 86140; 86304; 86431; 88300-TC; 93005; 93010; 93306-TC; 93971-TC; 99285-25; J0131; U0003